=== PATIENT | female | born 1955 | race Caucasian/White ===

== ENCOUNTER → 2017-06-24 | Outpatient (CLI) | payer OTHER, BC ==
--- NOTE | 2017-07-01 19:08 | SLEEPHOME ---
DATE OF STUDY: 06/24/2017 ORDERED BY: Lucy Mahmood NP Diagnostic home sleep testing was performed due to concern for the obstructive sleep apnea syndrome. For testing, a NOX-T3 respiratory monitoring device was used. Continuous record was made of pulse, oxygen saturation, air flow, chest and abdominal strain. 9 hours and 59 minutes of data were reviewed. Of these, 6hours and 56 minutes were marked as time in bed. During the interval marked time in bed, there were 36 respiratory events identified of 10 seconds in duration of greater for a respiratory event index of 5.2. The events were primarily obstructive. Baseline pulse rate was 64 beats per minute. Pulse rate ranged 46 to 89. Baseline saturation 95%. Lowest oxygen saturation 87%. Testing was performed in both the supine and non-supine positions. IMPRESSION: Abnormal home sleep testing with repetitive respiratory events and oxygen desaturations to 87% with a respiratory event index of 5.2, is consistent with the obstructive sleep apnea syndrome. RECOMMENDATION: The patient should be referred for formal sleep evaluation and consideration of pressure therapy titration.
== END ==
LOC: M SLEEP HO 06-23 09:15
PROVIDERS: ATTEND Nurse Practitioner Adult Health
DX: G47.33 Obstructive sleep apnea (adult) (pediatric) (principal)

== ENCOUNTER → 2017-11-01 | Outpatient (CLI) | payer OTHER, BC | LOC: M SLEEP 20:00 | DX: G47.33 Obstructive sleep apnea (adult) (pediatric) (principal); G47.61 Periodic limb movement disorder | CPT/HCPCS: 95811 ==

== ENCOUNTER → 2018-12-22 | Outpatient (REF) | payer OTHER ==
[~2018-12-22] MED LIST: COLA100C5 PO; D3 S20002 PO; DULC5TAB PO; METO1TAB87 PO; MICR1TAB5 PO; OLME20TA2 PO; SUPETAB44 PO
== END ==
LOC: M LABDRWAD 16:12
PROVIDERS: ATTEND Nurse Practitioner Adult Health
DX: R31.9 Hematuria, unspecified (principal); M54.5 Low back pain

== ENCOUNTER 2018-12-24 13:17 | Inpatient (IN) | payer OTHER, BC ==
[~2018-12-24] VITALS: Ht 165.1 cm; Wt 88.6 kg
[2018-12-24] MEDS ORDERED: D3 S20002 PO (13:22)
[2018-12-24] MEDS ORDERED: SUPETAB44 PO (13:22)
[2018-12-24] MEDS ORDERED: OLME20TA2 PO (13:22)
[2018-12-24] MEDS ORDERED: MICR1TAB5 PO (13:22)
[2018-12-24] MEDS ORDERED: METO1TAB87 PO (13:22)
[2018-12-24] MEDS ORDERED: NS 1,000 ML IV ONE (13:45)
[2018-12-24 14:06] LABS: BASO % 0.4 % (0.0-1.0); EOS # 0.1 10^3/uL (0.0-0.50); EOS % 0.6 % (0.0-3.0); HEMATOCRIT 29.2 % (36.0-47.0); HEMOGLOBIN 9.8 g/dl (12.0-15.5); LYMPH # 1.3 10^3/uL (1.5-4.5); LYMPH % 12.9 % (24.0-44.0); MEAN CORPUSCULAR HEMOGLOBIN 29.4 pg (27.0-33.0); MEAN CORPUSCULAR HGB CONC 33.6 g/dl (32.0-36.5); MEAN CORPUSCULAR VOLUME 87.7 fl (80.0-96.0); MONO # 0.7 10^3/uL (0.0-0.8); MONO % 7.4 % (0.0-5.0); NEUTROPHILS # 7.3 10^3/uL (1.8-7.7); NEUTROPHILS % 75.2 % (36.0-66.0); PLATELET COUNT, AUTOMATED 351 10^3/uL (150-450); RED BLOOD COUNT 3.33 10^6/uL (4.00-5.40); WHITE BLOOD COUNT 9.7 10^3/uL (4.0-10.0)
[2018-12-24 14:16] LABS: INR 1.24; PROTHROMBIN TIME 15.8 SECONDS (12.1-14.4)
[2018-12-24 14:17] LABS: PARTIAL THROMBOPLASTIN TIME 30.1 SECONDS (25.4-37.6)
[2018-12-24 14:36] LABS: BLOOD UREA NITROGEN 19 MG/DL (7-18); CALCIUM LEVEL 9.7 MG/DL (8.8-10.2); CARBON DIOXIDE LEVEL 22 MEQ/L (21-32); CHLORIDE LEVEL 111 MEQ/L (98-107); CREATININE FOR GFR 0.97 MG/DL (0.55-1.30); GLOMERULAR FILTRATION RATE > 60.0 (>45); GLUCOSE, FASTING 94 MG/DL (70-100); POTASSIUM SERUM 4.2 MEQ/L (3.5-5.1); SODIUM LEVEL 141 MEQ/L (136-145)
[2018-12-24 14:37] LABS: ALBUMIN 2.8 GM/DL (3.2-5.2); ALT/SGPT 13 U/L (12-78); BILIRUBIN,DIRECT 0.2 MG/DL (0.0-0.2); BILIRUBIN,TOTAL 0.6 MG/DL (0.2-1.0); LIPASE 172 U/L (73-393); TOTAL PROTEIN 6.4 GM/DL (6.4-8.2)
--- NOTE | 2018-12-24 16:03 | ECGEPIP ---
Stationary ECG Study [facility] - ED Test Date: 2018-12-24 Pat Name: PADDY DONALD Department: Room: - Gender: F Playback Operator: nathan : [id number] Requested By: LEANNE LACKEY PA-C Order Number: [id number] Reading MD: Joaquin Ramos Measurements Intervals [place] Rate: 98 P: 24 WI: 159 QRS: 11 QRSD: 82 T: 19 QT: 350 QTc: 447 Interpretive Statements SINUS RHYTHM V3 artifactual Electronically Signed On 12-24-2018 16:03:19 EDT by Joaquin Ramos
[2018-12-24] MEDS ORDERED: ONDANSETRON 4MG/2ML VIAL (J2405) IV PRN (16:45)
[2018-12-24] MEDS ORDERED: PERCOCET 5MG/325MG TAB PO PRN ×2 (16:45)
[2018-12-24] MEDS ORDERED: ACETAMINOPHEN TAB 650MG DOSE (2X325MG) PO PRN (16:45)
[2018-12-24] MEDS ORDERED: MORPHINE 4 MG/ML 1ML VIAL/SYRINGE (J2270) IV PRN (16:45)
[2018-12-24] MEDS: CIPROFLOXACIN 400 MG in APPROPRIATE DILUENT 1 EA IV SCH (16:56)
[2018-12-24] MEDS: PANTOPRAZOLE 40MG TAB (PROTONIX) PO SCH (16:56)
[2018-12-24] MEDS ORDERED: COLA100C5 PO (16:56)
[2018-12-24] MEDS ORDERED: DULC5TAB PO (16:56)
[2018-12-24 20:30] VITALS: BP 128/69
[2018-12-24] MEDS: metroNIDAZOLE 500 MG in APPROPRIATE DILUENT 1 EA IV SCH (20:38)
[2018-12-24] MEDS: HEPARIN SOD (PORCINE) 5000 UNITS/ML VIAL SC SCH (22:16)
[2018-12-25] VITALS: BP 116/65
[2018-12-25] MEDS: metroNIDAZOLE 500 MG in APPROPRIATE DILUENT 1 EA IV SCH ×3 (04:00→20:07)
[2018-12-25] MEDS: CIPROFLOXACIN 400 MG in APPROPRIATE DILUENT 1 EA IV SCH ×2 (06:23→17:47)
[2018-12-25] MEDS: HEPARIN SOD (PORCINE) 5000 UNITS/ML VIAL SC SCH ×3 (06:24→21:37)
[2018-12-25 07:15] LABS: BASO % 0.2 % (0.0-1.0); EOS # 0.1 10^3/uL (0.0-0.50); HEMATOCRIT 30.2 % (36.0-47.0); HEMOGLOBIN 9.8 g/dl (12.0-15.5); LYMPH # 1.4 10^3/uL (1.5-4.5); LYMPH % 15.4 % (24.0-44.0); MEAN CORPUSCULAR HEMOGLOBIN 28.6 pg (27.0-33.0); MEAN CORPUSCULAR HGB CONC 32.5 g/dl (32.0-36.5); MONO # 0.7 10^3/uL (0.0-0.8); MONO % 8.4 % (0.0-5.0); NEUTROPHILS # 6.3 10^3/uL (1.8-7.7); NEUTROPHILS % 71.2 % (36.0-66.0); PLATELET COUNT, AUTOMATED 350 10^3/uL (150-450); RED BLOOD COUNT 3.43 10^6/uL (4.00-5.40); WHITE BLOOD COUNT 8.8 10^3/uL (4.0-10.0)
[2018-12-25 07:38] LABS: BLOOD UREA NITROGEN 14 MG/DL (7-18); CALCIUM LEVEL 9.6 MG/DL (8.8-10.2); CARBON DIOXIDE LEVEL 23 MEQ/L (21-32); CHLORIDE LEVEL 114 MEQ/L (98-107); GLOMERULAR FILTRATION RATE > 60.0 (>45); GLUCOSE, FASTING 108 MG/DL (70-100); SODIUM LEVEL 144 MEQ/L (136-145)
--- NOTE | 2018-12-25 07:41 | HPEPDOC ---
General Surgery H&P Date of Admission Dec 24, 2018 Attending Physician: SABINA GRIJALVA MD History and Physical CHIEF COMPLAINT: left sided abdominal pain HISTORY OF PRESENT ILLNESS: Patient was instructed to go to the ER for evaluation when she had an outpatient CT scan of the abdomen and pelvis performed at [facility] early in the morning for a one week history of left sided abdominal pain and discomfort. Patient presented to her primary care provider last Friday with complaints of a one-week history of discomfort and pain located on the left side of the abdomen. She denies any accompanying (worsening) diarrhea fevers or chills. She reports discomfort with prolonged walking, sitting. She denies any sick contacts. She had a previous history of diverticulitis and was concerned this was another episode. She reports that her discomfort is more a nagging type of pain and this radiates to her lower back area. She was suspected to be passing out a kidney stone and a CT scan of the abdomen and pelvis was arranged for an outpatient. This was done early this morning at [facility]. After the CT scan was performed she was called back to go to the emergency room for further evaluation. At that time that she was in the ER she reports that her discomfort has actually gotten better for the past day. She currently rates this as a bout 3-12/23. She has no previous antibiotic course. She had previous colonoscopies performed. In our system she had one done in 2006. She reports she has had 2 other colonoscopies. The most recent one was done late last year by a Dr. Kemp in [place]. He was unable to complete it the cause of multiple diverticulosis. She reports she had a follow- up barium enema performed and no abnormalities were found in that study (was requested by a surgeon). On her previous colonoscopies no polyps have been found or removed. She has had a history of ovarian cancer about 8 years ago for which she had total abdominal hysterectomy performed. She also has had cholecystectomy performed and since then has been having loose bowel movements with periods of mild exacerbation so she was not sure if the diarrhea that she was having as part of what is going on right now or just because of her not having her gallbladder anymore. She also reports about a 40 pound history of weight loss since the start of the year which she was voluntarily doing my trying to improve her diet. She reports fair appetite and easily feeling full but denies any nausea, vomiting or abdominal distention. She reports minimal discomfort on the right side of her abdomen and only when this gets pushed during the examination. ALLERGIES: Please see below. HOME MEDICATIONS: Please see below. PAST MEDICAL HISTORY: 1. History of ovarian cancer. 2. Hypertension 3. Hypercholesterolemia. 4. Obstructive sleep apnea on CPAP 5. Varicose veins 6. Prior history of diverticulitis PAST SURGICAL HISTORY: 1. Total abdominal hysterectomy and salpingo-oophorectomy. 2. Laparoscopic cholecystectomy 3. Tubal ligation 4. Prior history of colonoscopies PERSONAL/SOCIAL HISTORY: [Denies smoking, alcohol use, or recreational drug use]. REVIEW OF SYSTEMS: GENERAL: She reports about a 40 pound weight loss since the start of the year, she denies any fevers or chills. HEENT: [Denies blurred vision and double vision. Denies ear symptoms. Denies hoarseness]. NECK: [Denies any neck pain]. CARDIOVASCULAR: [Denies chest pain and palpitations]. MUSCULOSKELETAL: [Denies arthralgias, back pain and thrombophlebitis]. SKIN: [Denies rash]. NEUROLOGIC: [Denies headache, stroke and transient ischemic attack]. PSYCHIATRIC: [Denies anxiety and depression]. ENDOCRINE: [Denies thyroid disease]. HEMATOLOGY/ONCOLOGY: [Denies any bleeding or clotting disorder]. HEART: [Denies any chest pains, palpitations, paroxysmal dyspnea, orthopnea]. PULMONARY: [Denies chronic cough, dyspnea and wheezing]. GASTROINTESTINAL: Patient complains of episodes of multiple loose stools daily since cholecystectomy. 1 history of left-sided abdominal pain GENITOURINARY: [Denies dysuria, frequency, hematuria and nocturia]. ENDOCRINE: [Denies polydipsia, polyphagia, polyuria, heat or cold intolerance]. INFECTIOUS: [Denies any recent upper respiratory tract infection, UTI, need for use of antibiotics]. NUTRITION: Reports poor to fair appetite, feeling of fullness easily. PHYSICAL EXAMINATION: VITAL SIGNS: Please see below. GENERAL APPEARANCE: [Patient seen at bedside, appears comfortable]. [Awake, alert, oriented]. HEENT: [Normocephalic, atraumatic. Mild pale palpebral conjunctivae. Anicteric sclerae. Lips moist]. CHEST: [No chest wall abnormalities. Normal respiratory motion/effort]. NECK: [Supple. No thyromegaly. No lymphadenopathies]. LUNGS: [Lung sounds are clear to auscultation bilaterally. No wheezing apprecia elyse]. HEART: [No chest wall abnormalities. Heart rate and rhythm are regular with no murmurs]. ABDOMEN: Abdomen slightly rounded, mildly obese, loose skin and pannus. Should previous laparoscopic port sites that appears healed. No [place] herniations at the umbilicus or groin. She has mild tenderness on palpation over the left lower abdomen near the groin site but no definite associated hernia or skin changes towards it. No rebound or guarding. She has mild discomfort with palpation over the right lower quadrant area without any associated rebound or guarding. No definite masses palpable. Slight tympany to percussion with no definite increased distention. SKIN: [Warm, moist]. EXTREMITIES: Her right leg seems bigger than the left with mild generalized erythema. Varicosities more prominent on the right leg than the left. NEUROLOGICAL: Awake, alert, oriented, no hemiplegia no focal sensory or motor deficits.. ANCILLARIES: . LABORATORY DATA: Please see below. MICROBIOLOGY: Please see below. IMAGING: She came in with a CT of the abdomen and pelvis done at [facility]. I reviewed the images with Dr. Wren. She had a prior CT of the abdomen and pelvis done in 2015 on an emergency room visit for diverticulitis. Images at [facility] was compared with this. On today's CT, at the right lower quadrant area she is an extensive area of acute inflammatory findings with area surrounding the appendix showing contained extraluminal air, inflammation and possibility of an abscess. Appendix stump appears to be markedly enlarged, fluid-containing. Back to the images in 2015 the appendix on this can seems to be enlarged and fluid-filled. On today's imaging also there are scattered enlarged lymph nodes. There is no free air, no free ascites. There is no inflammatory changes or bowel changes over the left lower quadrant area.. 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 Clinically she ismainly complaining of left sided abdominal discomfort that led to the CT scan of the abdomen and pelvis as ordered by her PMD. I do not have any findings on CT to correlate on why she is having discomfort at the area.Instead there are acute inflammatory findings consitent with contained perforation of most likely the appendix with a contained air and fluid collection just below the liver most likely an abscess. This is complicated by findings of an enlarged appendix that on looking back at previous imaging has been there since last CT on 2014 of a fluid filled tubular structure which is the distended appendix raising possibilty of a mucocoele vs a mucin containing tumor of the appendix. Clinically she is not septic and is only having minimal tenderness over the RLQ area. She is not showing any signs of obstruction. She is reporting significant weight loss as well as diarrhea which she initially attributes to having cholecystectomy performed. At this point I will admit her to the hospital under my care. Start her on antibiotics for the acute inflammation. I spoke to radiiology regarding draining the abscess but they do not recommend this given possibility of cancer which may cause rupture of the collection and seeding the cancer. I will boserve her course, may need to repeat CT and tentatively plan for abdominal exploration next week. Vital Signs Vital Signs Date Time Temp Pulse Resp B/P (MAP) Pulse Ox O2 Delivery O2 Flow Rate FiO2 12/25/18 00:00 97.8 91 20 116/65 (82) 97 12/24/18 19:34 Room Air I&Os I&O- Last 24 Hours up to 6 AM 12/25/18 06:00 Intake Total 1300 ml Balance 1300 ml Laboratory Data Labs 24H Laboratory Tests 2 12/24/18 13:57: Immature Granulocyte % (Auto) 3.5H, White Blood Count 9.7, Red Blood Count 3.33L , Hemoglobin 9.8L, Hematocrit 29.2L, Mean Corpuscular Volume 87.7, Mean Corpuscular Hemoglobin 29.4, Mean Corpuscular Hemoglobin Concent 33.6, Red Cell Distribution Width 11.9, Platelet Count 351, Neutrophils (%) (Auto) 75.2H, Lymphocytes (%) (Auto) 12.9L, Monocytes (%) (Auto) 7.4H, Eosinophils (%) (Auto) 0.6, Basophils (%) (Auto) 0.4, Neutrophils # (Auto) 7.3, Lymphocytes # (Auto) 1.3L, Monocytes # (Auto) 0.7, Eosinophils # (Auto) 0.1, Basophils # (Auto) 0.0, Nucleated Red Blood Cells % (auto) 0.0, Prothrombin Time 15.8H, Prothromb Time International Ratio 1.24, Activated Partial Thromboplast Time 30.1, Urine Color YELLOW, Urine Appearance CLEAR, Urine pH 5.0, Urine Specific [place] 1.040, Urine Protein NEGATIVE, Urine Glucose (UA) NEGATIVE, Urine Ketones NEGATIVE, Urine Blood NEGATIVE, Urine Nitrite NEGATIVE, Urine Bilirubin NEGATIVE, Urine Urobilinogen 0.2, Urine Leukocyte Esterase NEGATIVE, Urine WBC (Auto) 2, Urine RBC (Auto) 0, Urine Hyaline Casts (Auto) 0, Urine Bacteria (Auto) 1+H, Urine Squamous Epithelial Cells 5, Urine Sperm (Auto) , Anion Gap 8, Glomerular Filtration Rate > 60.0, Lactic Acid Level 1.1, Calcium Level 9.7, Aspartate Amino Transf (AST/SGOT) 11, Alanine Aminotransferase (ALT/SGPT) 13, Alkaline Phosphatase 64, Total Bilirubin 0.6, Direct Bilirubin 0.2, Total Protein 6.4, Albumin 2.8L, Albumin/Globulin Ratio 0.78L, Lipase 172 12/25/18 06:38: Immature Granulocyte % (Auto) 3.8H, White Blood Count 8.8, Red Blood Count 3.43L, Hemoglobin 9.8L, Hematocrit 30.2L, Mean Corpuscular Volume 88.0, Mean Corpuscular Hemoglobin 28.6, Mean Corpuscular Hemoglobin Concent 32.5, Red Cell Distribution Width 12.0, Platelet Count 350, Neutrophils (%) (Auto) 71.2H, Lymphocytes (%) (Auto) 15.4L, Monocytes (%) (Auto) 8.4H, Eosinophils (%) (Auto) 1.0, Basophils (%) (Auto) 0.2, Neutrophils # (Auto) 6.3, Lymphocytes # (Auto) 1.4L, Monocytes # (Auto) 0.7, Eosinophils # (Auto) 0.1, Basophils # (Auto) 0.0, Nucleated Red Blood Cells % (auto) 0.0 CBC/BMP Laboratory Tests 12/24/18 13:57 Red Blood Count 3.33 L, Mean Corpuscular Volume 87.7, Mean Corpuscular Hemoglobin 29.4, Mean Corpuscular Hemoglobin Concent 33.6, Red Cell Distribution Width 11.9, Neutrophils (%) (Auto) 75.2 H, Lymphocytes (%) (Auto) 12.9 L, Monocytes (%) (Auto) 7.4 H, Eosinophils (%) (Auto) 0.6, Basophils (%) (Auto) 0.4, Neutrophils # (Auto) 7.3, Lymphocytes # (Auto) 1.3 L, Monocytes # (Auto) 0.7, Eosinophils # (Auto) 0.1, Basophils # (Auto) 0.0 12/25/18 06:38 Red Blood Count 3.43 L, Mean Corpuscular Volume 88.0, Mean Corpuscular He moglobin 28.6, Mean Corpuscular Hemoglobin Concent 32.5, Red Cell Distribution Width 12.0, Neutrophils (%) (Auto) 71.2 H, Lymphocytes (%) (Auto) 15.4 L, Monocytes (%) (Auto) 8.4 H, Eosinophils (%) (Auto) 1.0, Basophils (%) (Auto) 0.2, Neutrophils # (Auto) 6.3, Lymphocytes # (Auto) 1.4 L, Monocytes # (Auto) 0.7, Eosinophils # (Auto) 0.1, Basophils # (Auto) 0.0 Microbiology Microbiology 12/24/18 Blood Culture, Received Pending 12/24/18 Blood Culture, Received Pending Home Medications Scheduled Cholecalciferol (Vitamin D3) (Vitamin D3) 2,000 Unit Capsule, 2,000 UNITS PO QPM, (Reported) Colestipol HCl (Micronized Colestipol HCl) 1 Gm Tablet, 1 GM PO QPM, (Reported) Folic Acid/Vit B Complex and C (Super B Complex Tablet) 400 Mcg Tablet, 1 TAB PO QPM, (Reported) Metoprolol Tartrate (Metoprolol Tartrate) 25 Mg Tablet, 25 MG PO BID, (Reported) Olmesartan Medoxomil (Olmesartan Medoxomil) 20 Mg Tablet, 20 MG PO QPM, (Reported) Scheduled PRN Bisacodyl (Dulcolax) 5 Mg Tablet.dr, 5 MG PO DAILY PRN for CONSTIPATION, (Reported) Docusate Sodium (Colace) 100 Mg Capsule, 100 MG PO DAILY PRN for CONSTIPATION, (Reported) Allergies Coded Allergies: No Known Drug Allergies (Verified Allergy, Unknown, 12/24/18) SABINA GRIJALVA MD Dec 25, 2018 07:41
[2018-12-25 08:00] VITALS: BP 118/61
[2018-12-25] MEDS: PANTOPRAZOLE 40MG TAB (PROTONIX) PO SCH (08:53)
[2018-12-25 16:00] VITALS: BP 112/72
--- NOTE | 2018-12-25 16:10 | REP ---
RIGHT LOWER EXTREMITY DUPLEX DOPPLER VENOUS ULTRASOUND: Real-time compression and duplex Doppler interrogation of the right lower extremity deep venous system is performed. The right common femoral, superficial femoral and popliteal veins are fully compressible with transducer pressure and demonstrate normal flow with no deep vein thrombosis. However, there is diffuse thrombosis of the greater saphenous vein with multiple thrombosed venous varicosities adjacent to the mid to distal aspects of the greater saphenous vein. Electronically Signed by Neo Lao MD 12/25/2018 05:10 P
[2018-12-25 20:00] VITALS: BP 141/81
[2018-12-26] MEDS: metroNIDAZOLE 500 MG in APPROPRIATE DILUENT 1 EA IV SCH ×3 (03:50→20:40)
[2018-12-26 04:08] VITALS: BP 131/78
--- NOTE | 2018-12-26 05:27 | IPNPDOC ---
Subjective General Date/Time Seen The patient was seen on 12/25/18 Subject Chief Complaint/History The patient is a 63-year-old female admitted with a reason for visit of Appendicitis With Abscess Mucocele Appendix.... Patient reports no further abdominal pain, left lower quadrant and right lower quadrant abdominal pain. She is reporting some mild tenderness and swelling on her right lower extremity which is chronic. She's been afebrile, stable overnight. Current Medications Current Medications Current Medications Acetaminophen (Tylenol Tab) 650 mg Q4HP PRN PO MILD PAIN or TEMP > 101; Start 12/24/18 at 16:45 Ciprofloxacin 400 mg/IV Miscellaneous Supplies 200 ml @ 200 mls/hr Q12H IV Last administered on 12/25/18at 17:47; Start 12/24/18 at 18:00 Heparin Sodium (Porcine) (Heparin) 5,000 units Q8H SC Last administered on 12/25/18at 21:37; Start 12/24/18 at 22:00 Home Med (Med Rec Complete!) ASDIRECTED XX ; Start 12/24/18 at 17:00; Stop 12/24/18 at 17:00; Status DC Magnesium Hydroxide (Milk Of Magnesia) 30 ml BID PO ; Start 12/26/18 at 09:00 Metronidazole 500 mg/IV Miscellaneous Supplies 100 ml @ 100 mls/hr Q8H IV Last administered on 12/26/18at 03:50; Start 12/24/18 at 20:00 Morphine Sulfate (Morphine Sulfate Inj) 4 mg Q2HP PRN IV SEVERE PAIN (PS 8-10); Start 12/24/18 at 16:45 Ondansetron HCl (ZOFRAN INJection) 4 mg Q6HP PRN IV NAUSEA OR VOMITING; Start 12/24/18 at 16:45 Oxycodone/ Acetaminophen (Percocet 5mg/ 325mg Tablet) 1 tab Q4HP PRN PO MODERATE PAIN (PS 5-7); Start 12/24/18 at 16:45 Oxycodone/ Acetaminophen (Percocet 5mg/ 325mg Tablet) 2 tab Q6HP PRN PO SEVERE PAIN (PS 8-10); Start 12/24/18 at 16:45 Pantoprazole Sodium (Protonix) 40 mg DAILY PO Last administered on 12/25/18at 08:53; Start 12/24/18 at 09:00 Allergies Coded Allergies: No Known Drug Allergies (Verified Allergy, Unknown, 12/24/18) Objective Physical Examination Examination GENERAL APPEARANCE: Comfortable. SKIN: [Warm and moist]. HEENT: Mild Pale palpebral conjunctiva. NECK: [Supple, no thyromegaly. No obvious jugular venous distention]. LUNGS: [Clear to auscultation bilaterally. No wheezing appreciated]. HEART: [No chest wall abnormalities. Regular rate and rhythm with no murmurs appreciated]. ABDOMEN: Abdomen is nondistended, soft, nontender on palpation. EXTREMITIES: Right lower extremity mildly larger than the left, prominent thrombosed varicosities slight prominence on the medial knee area on the right side without any fluctuance.. Vital Signs Vital Signs Date Time Temp Pulse Resp B/P (MAP) Pulse Ox O2 Delivery O2 Flow Rate FiO2 12/26/18 04:08 98.7 82 18 131/78 (95) 98 12/24/18 19:34 Room Air I&Os I&O- Last 24 Hours up to 6 AM 12/26/18 06:00 Intake Total 1540 ml Output Total 400 ml Balance 1140 ml Laboratory Data Labs 24H Laboratory Tests 2 12/25/18 06:38: Immature Granulocyte % (Auto) 3.8H, White Blood Count 8.8, Red Blood Count 3.43L, Hemoglobin 9.8L, Hematocrit 30.2L, Mean Corpuscular Volume 88.0, Mean Corpuscular Hemoglobin 28.6, Mean Corpuscular Hemoglobin Concent 32.5, Red Cell Distribution Width 12.0, Platelet Count 350, Neutrophils (%) (Auto) 71.2H, Lymphocytes (%) (Auto) 15.4L, Monocytes (%) (Auto) 8.4H, Eosinophils (%) (Auto) 1.0, Basophils (%) (Auto) 0.2, Neutrophils # (Auto) 6.3, Lymphocytes # (Auto) 1.4L, Monocytes # (Auto) 0.7, Eosinophils # (Auto) 0.1, Basophils # (Auto) 0.0, Nucleated Red Blood Cells % (auto) 0.0, Anion Gap 7L, Glomerular Filtration Rate > 60.0, Blood Urea Nitrogen 14, Creatinine 0.90, Sodium Level 144, Potassium Level 4.0, Chloride Level 114H, Carbon Dioxide Level 23, Calcium Level 9.6 CBC/BMP Laboratory Tests 12/25/18 06:38 Red Blood Count 3.43 L, Mean Corpuscular Volume 88.0, Mean Corpuscular Hemo globin 28.6, Mean Corpuscular Hemoglobin Concent 32.5, Red Cell Distribution Width 12.0, Neutrophils (%) (Auto) 71.2 H, Lymphocytes (%) (Auto) 15.4 L, Monocytes (%) (Auto) 8.4 H, Eosinophils (%) (Auto) 1.0, Basophils (%) (Auto) 0.2, Neutrophils # (Auto) 6.3, Lymphocytes # (Auto) 1.4 L, Monocytes # (Auto) 0.7, Eosinophils # (Auto) 0.1, Basophils # (Auto) 0.0, Calcium Level 9.6 Microbiology Microbiology 12/24/18 Blood Culture - Preliminary, Resulted No growth after 24 hours . All specim... 12/24/18 Blood Culture - Preliminary, Resulted No growth after 24 hours . All specim... 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 I will switch her to full liquids today and clear liquids and Friday Plan / VTE VTE Prophylaxis Ordered?: Yes SABINA GRIJALVA MD Dec 26, 2018 05:27
[2018-12-26] MEDS: CIPROFLOXACIN 400 MG in APPROPRIATE DILUENT 1 EA IV SCH ×2 (05:29→17:56)
[2018-12-26] MEDS: HEPARIN SOD (PORCINE) 5000 UNITS/ML VIAL SC SCH ×3 (05:29→22:33)
[2018-12-26 07:42] LABS: BASO % 0.3 % (0.0-1.0); EOS # 0.1 10^3/uL (0.0-0.50); EOS % 0.8 % (0.0-3.0); HEMATOCRIT 27.1 % (36.0-47.0); HEMOGLOBIN 8.7 g/dl (12.0-15.5); LYMPH # 0.9 10^3/uL (1.5-4.5); LYMPH % 12.1 % (24.0-44.0); MEAN CORPUSCULAR HEMOGLOBIN 28.4 pg (27.0-33.0); MEAN CORPUSCULAR HGB CONC 32.1 g/dl (32.0-36.5); MEAN CORPUSCULAR VOLUME 88.6 fl (80.0-96.0); MONO # 0.7 10^3/uL (0.0-0.8); MONO % 8.7 % (0.0-5.0); NEUTROPHILS # 5.8 10^3/uL (1.8-7.7); NEUTROPHILS % 76.1 % (36.0-66.0); PLATELET COUNT, AUTOMATED 298 10^3/uL (150-450); RED BLOOD COUNT 3.06 10^6/uL (4.00-5.40); WHITE BLOOD COUNT 7.6 10^3/uL (4.0-10.0)
[2018-12-26 07:51] LABS: BLOOD UREA NITROGEN 11 MG/DL (7-18); CALCIUM LEVEL 8.8 MG/DL (8.8-10.2); CARBON DIOXIDE LEVEL 23 MEQ/L (21-32); CHLORIDE LEVEL 112 MEQ/L (98-107); CREATININE FOR GFR 0.87 MG/DL (0.55-1.30); GLOMERULAR FILTRATION RATE > 60.0 (>45); GLUCOSE, FASTING 137 MG/DL (70-100); POTASSIUM SERUM 3.9 MEQ/L (3.5-5.1); SODIUM LEVEL 143 MEQ/L (136-145)
[2018-12-26 08:00] VITALS: BP 140/75
[2018-12-26] MEDS: MOM 30ML SUSPENSION UDC PO SCH ×2 (08:17→20:40)
[2018-12-26] MEDS: PANTOPRAZOLE 40MG TAB (PROTONIX) PO SCH (08:17)
[2018-12-26 16:00] VITALS: BP 134/75
[2018-12-26 20:00] VITALS: BP 127/77
[2018-12-27] VITALS: BP 117/72
[2018-12-27] MEDS: metroNIDAZOLE 500 MG in APPROPRIATE DILUENT 1 EA IV SCH ×3 (03:53→21:31)
[2018-12-27] MEDS: CIPROFLOXACIN 400 MG in APPROPRIATE DILUENT 1 EA IV SCH ×2 (05:11→17:43)
[2018-12-27] MEDS: HEPARIN SOD (PORCINE) 5000 UNITS/ML VIAL SC SCH ×3 (06:32→21:31)
[2018-12-27 07:38] LABS: BASO % 0.5 % (0.0-1.0); EOS # 0.1 10^3/uL (0.0-0.50); EOS % 1.1 % (0.0-3.0); HEMATOCRIT 26.8 % (36.0-47.0); HEMOGLOBIN 8.8 g/dl (12.0-15.5); LYMPH # 1.1 10^3/uL (1.5-4.5); MEAN CORPUSCULAR HEMOGLOBIN 28.8 pg (27.0-33.0); MEAN CORPUSCULAR HGB CONC 32.8 g/dl (32.0-36.5); MEAN CORPUSCULAR VOLUME 87.6 fl (80.0-96.0); MONO # 0.6 10^3/uL (0.0-0.8); MONO % 9.4 % (0.0-5.0); NEUTROPHILS # 4.3 10^3/uL (1.8-7.7); NEUTROPHILS % 68.3 % (36.0-66.0); PLATELET COUNT, AUTOMATED 284 10^3/uL (150-450); RED BLOOD COUNT 3.06 10^6/uL (4.00-5.40); WHITE BLOOD COUNT 6.3 10^3/uL (4.0-10.0)
[2018-12-27 07:52] LABS: BLOOD UREA NITROGEN 9 MG/DL (7-18); CARBON DIOXIDE LEVEL 23 MEQ/L (21-32); CHLORIDE LEVEL 113 MEQ/L (98-107); CREATININE FOR GFR 0.88 MG/DL (0.55-1.30); GLOMERULAR FILTRATION RATE > 60.0 (>45); GLUCOSE, FASTING 131 MG/DL (70-100); POTASSIUM SERUM 3.8 MEQ/L (3.5-5.1); SODIUM LEVEL 143 MEQ/L (136-145)
[2018-12-27] MEDS: MOM 30ML SUSPENSION UDC PO SCH ×2 (08:23→21:30)
[2018-12-27] MEDS: PANTOPRAZOLE 40MG TAB (PROTONIX) PO SCH (08:23)
[2018-12-27 09:00] VITALS: BP 140/85
[2018-12-27 16:00] VITALS: BP 149/89
[2018-12-27 20:00] VITALS: BP 137/90
[2018-12-28] VITALS (8 sets, daily range): BP systolic 125–141; BP diastolic 70–81
[2018-12-28] MEDS: metroNIDAZOLE 500 MG in APPROPRIATE DILUENT 1 EA IV SCH ×3 (03:09→20:11)
[2018-12-28] MEDS: CIPROFLOXACIN 400 MG in APPROPRIATE DILUENT 1 EA IV SCH ×2 (05:08→18:08)
--- NOTE | 2018-12-28 07:12 | IPN ---
DATE: 12/26/2018 The patient overall has been doing quite well from a pain standpoint, she has been afebrile and not having any nausea, no vomiting. And her white count remains normal. She overall states her abdominal pain is much better and essentially does not complain of any abdominal pain. She has had a couple bowel movements yesterday and one this morning already. On her physical exam abdomen is soft, nontender, nondistended. No guarding no rebound. No peritoneal signs are appreciated. IMPRESSION AND PLAN: The patient has evidence of a intra-abdominal abscess and the location of the abnormality is where a possibly dilated appendix is and given its presentation I do feel that this is a reasonable next step to proceed with a diagnostic laparoscopy, possible laparotomy with resection of this. The patient currently is on full liquid diet, tolerating this well and has received some milk of magnesia and has had some soft stools associated with this. At this point I would recommend that she continue increase activity and will see how she is doing over the ensuing few days. The second issue, she does have a thrombophlebitis of her greater saphenous vein and this could be easily palpated. He is not really all that tender at this point she states that it is a lot better than it was yesterday but has had a superficial thrombophlebitis in the past when I palpate the greater saphenous vein and I start to track up the clot in the varicosity along the greater. His pain. This stops mid midthigh does not seem to go any further physically. And overall she does not have any significant lymphedema of the lower extremity or pain in the lower extremity. She is currently on some heparin and K pad for relief.
[2018-12-28 07:22] LABS: BASO % 0.4 % (0.0-1.0); EOS # 0.1 10^3/uL (0.0-0.50); EOS % 0.8 % (0.0-3.0); HEMATOCRIT 27.6 % (36.0-47.0); HEMOGLOBIN 9.3 g/dl (12.0-15.5); LYMPH # 1.2 10^3/uL (1.5-4.5); LYMPH % 14.5 % (24.0-44.0); MEAN CORPUSCULAR HEMOGLOBIN 29.1 pg (27.0-33.0); MEAN CORPUSCULAR HGB CONC 33.7 g/dl (32.0-36.5); MEAN CORPUSCULAR VOLUME 86.3 fl (80.0-96.0); MONO # 0.7 10^3/uL (0.0-0.8); MONO % 8.6 % (0.0-5.0); NEUTROPHILS # 5.8 10^3/uL (1.8-7.7); NEUTROPHILS % 72.9 % (36.0-66.0); PLATELET COUNT, AUTOMATED 299 10^3/uL (150-450); WHITE BLOOD COUNT 7.9 10^3/uL (4.0-10.0)
--- NOTE | 2018-12-28 07:23 | IPN ---
DATE: 12/27/2018 The patient is doing well today, feels even better. Her leg does not bother her at all and overall tolerating her diet. Continues to have some soft stool. She is not feeling bloated or distended. Her abdomen is soft, nontender, nondistended. She has been afebrile. Vital signs are stable and urine outputs been good although it has not been monitored per se. IMPRESSION/PLAN: From a GI standpoint she does have this abnormality on her x-ray/CT scan of an abnormality in the right side of the abdomen and it looks like there may be a localized perforation of possibly a mucocele of the appendix which may be what is going on in this area, it is hard to tell. Fortunately, she does not have a significant amount of inflammatory changes around this at this time and no significant ileus and no free intra-abdominal perforation. She has done well over the last several days and tomorrow is planning on undergoing a diagnostic laparoscopy with possible laparotomy. Her hematocrit has drifted down a bit since her admission but has been stable since yesterday. She is asymptomatic from a shortness of breath standpoint no evidence of shortness of breath. No evidence of tachycardia, and her blood pressure. She is continuing on some heparin at this point but this will be before midnight.
[2018-12-28 07:43] LABS: BLOOD UREA NITROGEN 6 MG/DL (7-18); CALCIUM LEVEL 9.3 MG/DL (8.8-10.2); CARBON DIOXIDE LEVEL 25 MEQ/L (21-32); CHLORIDE LEVEL 111 MEQ/L (98-107); CREATININE FOR GFR 0.95 MG/DL (0.55-1.30); GLOMERULAR FILTRATION RATE > 60.0 (>45); GLUCOSE, FASTING 135 MG/DL (70-100); POTASSIUM SERUM 3.8 MEQ/L (3.5-5.1); SODIUM LEVEL 142 MEQ/L (136-145)
[2018-12-28] MEDS ORDERED: PROPOFOL 200 MG/20 ML VIAL As Ordered ONE (08:01)
[2018-12-28] MEDS ORDERED: ONDANSETRON 4MG/2ML VIAL (J2405) As Ordered ONE ×2 (08:01→14:40)
[2018-12-28] MEDS ORDERED: LIDOCAINE 2% INJ 100 MG/5 ML SDV (FOR ANES.) As Ordered ONE (08:01)
[2018-12-28] MEDS ORDERED: METOCLOPRAMIDE INJ 10MG/2ML VIAL (J2765) As Ordered ONE (08:01)
[2018-12-28] MEDS ORDERED: ROCURONIUM BROMIDE 50 MG/5 ML VIAL As Ordered ONE ×2 (08:01→11:41)
[2018-12-28] MEDS ORDERED: MIDAZOLAM INJ 2 MG/2 ML VIAL (J2250) As Ordered ONE (08:02)
[2018-12-28] MEDS ORDERED: fentaNYL 250 MCG/5 ML INJECTION (J3010) As Ordered ONE (08:02)
[2018-12-28] MEDS: MOM 30ML SUSPENSION UDC PO SCH ×2 (09:00→20:12)
[2018-12-28] MEDS ORDERED: LIDOCAINE 1% SDV INJ 30 ML VIAL As Ordered ONE (09:45)
[2018-12-28] MEDS ORDERED: BUPIVACAINE HCL 0.25% 30 ML VIAL As Ordered ONE (09:45)
--- NOTE | 2018-12-28 09:46 | IPNPDOC ---
Subjective General Date/Time Seen The patient was seen on 12/28/18 at 09:43. Subject Chief Complaint/History The patient is a 63-year-old female admitted with a reason for visit of Appendicitis With Abscess Mucocele Appendix.... Patient was seen at the preoperative holding area. No acute events over the weekend. Her left lower quadrant discomfort is mostly gone away and she is only minimal right lower quadrant discomfort. She's been afebrile throughout her stay. Current Medications Current Medications Current Medications Acetaminophen (Tylenol Tab) 650 mg Q4HP PRN PO MILD PAIN or TEMP > 101; Start 12/24/18 at 16:45 Ciprofloxacin 400 mg/IV Miscellaneous Supplies 200 ml @ 200 mls/hr Q12H IV Last administered on 12/28/18at 05:08; Start 12/24/18 at 18:00 Heparin Sodium (Porcine) (Heparin) 5,000 units Q8H SC Last administered on 12/27/18at 21:31; Start 12/24/18 at 22:00; Stop 12/27/18 at 23:00; Status DC Home Med (Med Rec Complete!) ASDIRECTED XX ; Start 12/24/18 at 17:00; Stop 12/24/18 at 17:00; Status DC Magnesium Hydroxide (Milk Of Magnesia) 30 ml BID PO Last administered on 12/27/18at 21:30; Start 12/26/18 at 09:00 Metronidazole 500 mg/IV Miscellaneous Supplies 100 ml @ 100 mls/hr Q8H IV Last administered on 12/28/18at 03:09; Start 12/24/18 at 20:00 Morphine Sulfate (Morphine Sulfate Inj) 4 mg Q2HP PRN IV SEVERE PAIN (PS 8-10); Start 12/24/18 at 16:45 Ondansetron HCl (ZOFRAN INJection) 4 mg Q6HP PRN IV NAUSEA OR VOMITING; Start 12/24/18 at 16:45 Oxycodone/ Acetaminophen (Percocet 5mg/ 325mg Tablet) 1 tab Q4HP PRN PO MODERATE PAIN (PS 5-7); Start 12/24/18 at 16:45 Oxycodone/ Acetaminophen (Percocet 5mg/ 325mg Tablet) 2 tab Q6HP PRN PO SEVERE PAIN (PS 8-10); Start 12/24/18 at 16:45 Pantoprazole Sodium (Protonix) 40 mg DAILY PO Last administered on 12/27/18at 08:23; Start 12/24/18 at 09:00 Allergies Coded Allergies: No Known Drug Allergies (Verified Allergy, Unknown, 12/24/18) Objective Physical Examination Examination GENERAL APPEARANCE: Comfortable. SKIN: Warm and dry. HEENT: Mild pale palpebral conjunctiva. NECK: [Supple, no thyromegaly. No obvious jugular venous distention]. LUNGS: [Clear to auscultation bilaterally. No wheezing appreciated]. HEART: [No chest wall abnormalities. Regular rate and rhythm with no murmurs appreciated]. ABDOMEN: Abdomen is mildly obese, soft, nondistended. Mild fullness, minimal tenderness on deep palpation over the right lower quadrant area without rebound or guarding. EXTREMITIES: Right lower extremity slightly larger than the left, minimal lower extremity edema. Vital Signs Vital Signs Date Time Temp Pulse Resp B/P (MAP) Pulse Ox O2 Delivery O2 Flow Rate FiO2 12/28/18 04:30 97.2 74 18 99 12/27/18 20:00 137/90 (106) 12/24/18 19:34 Room Air I&Os I&O- Last 24 Hours up to 6 AM 12/28/18 06:00 Intake Total 1520 ml Output Total 150 ml Balance 1370 ml Laboratory Data Labs 24H Laboratory Tests 2 12/28/18 07:06: Immature Granulocyte % (Auto) 2.8, White Blood Count 7.9, Red Blood Count 3.20L, Hemoglobin 9.3L, Hematocrit 27.6L, Mean Corpuscular Volume 86.3, Mean Corpuscular Hemoglobin 29.1, Mean Corpuscular Hemoglobin Concent 33.7, Red Cell Distribution Width 11.9, Platelet Count 299, Neutrophils (%) (Auto) 72.9H, Lymphocytes (%) (Auto) 14.5L, Monocytes (%) (Auto) 8.6H, Eosinophils (%) (Auto) 0.8, Basophils (%) (Auto) 0.4, Neutrophils # (Auto) 5.8, Lymphocytes # (Auto) 1.2L, Monocytes # (Auto) 0.7, Eosinophils # (Auto) 0.1, Basophils # (Auto) 0.0, Nucleated Red Blood Cells % (auto) 0.0, Anion Gap 6L, Glomerular Filtration Rate > 60.0, Blood Urea Nitrogen 6L, Creatinine 0.95, Sodium Level 142, Potassium Level 3.8, Chloride Level 111H, Carbon Dioxide Level 25, Calcium Level 9.3 CBC/BMP Laboratory Tests 12/28/18 07:06 Red Blood Count 3.20 L, Mean Corpuscular Volume 86.3, Mean Corpuscular Hemoglobin 29.1, Mean Corpuscular Hemoglobin Concent 33.7, Red Cell Distribution Width 11.9, Neutrophils (%) (Auto) 72.9 H, Lymphocytes (%) (Auto) 14.5 L, Monocytes (%) (Auto) 8.6 H, Eosinophils (%) (Auto) 0.8, Basophils (%) (Auto) 0.4, Neutrophils # (Auto) 5.8, Lymphocytes # (Auto) 1.2 L, Monocytes # (Auto) 0.7, Eosinophils # (Auto) 0.1, Basophils # (Auto) 0.0, Calcium Level 9.3 Microbiology Microbiology 12/24/18 Blood Culture - Preliminary, Resulted No Growth after 72 hours. All specime... 12/24/18 Blood Culture - Preliminary, Resulted No Growth after 72 hours. All specime... 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 Anemia of chronic disease Patient will be going to the operating room today. We will start of a diagnostic laparoscopy hopefully send some specimen for frozen section to determine the length of resection that we need. She most likely will end up with a right colectomy. I reviewed with her the plan for surgery including its risks and benefits. We spoke about risks of bleeding, infection, possible need for transfusion and its attendant risks, bowel injury, vascular injury, anastomotic leakage, possible subsequent hernia formation. All her questions and concerns were likewise addressed at this time. She remains in antibiotics She has 2 units of packed RBCs crossmatched for possible need for transfusion. Plan / VTE VTE Prophylaxis Ordered?: Yes SABINA GRIJALVA MD Dec 28, 2018 09:46
[2018-12-28] MEDS ORDERED: metroNIDAZOLE/NACL 500MG(5MG/ML)100 ML BAG (S0030) As Ordered ONE (11:00)
[2018-12-28] MEDS ORDERED: HYDROmorphone HCL 2 MG/ML 1ML VIAL (J1170) As Ordered ONE (12:15)
[2018-12-28] MEDS ORDERED: ePHEDrine SULFATE 25 MG/5 ML(5MG/ML) SYRINGE As Ordered ONE (12:45)
[2018-12-28] MEDS ORDERED: BUPIVACAINE HCL 0.25% 10 ML VIAL As Ordered ONE (13:41)
[2018-12-28] MEDS ORDERED: BUPIVACAINE LIPOSOME/PF 1.3% 20ML VIAL (13.3MG/ML)(EXPAREL)(C9290 PER1MG) As Ordered ONE (13:41)
[2018-12-28] MEDS: LR 1,000 ML IV SCH ×2 (14:30→22:00)
[2018-12-28] MEDS ORDERED: KETOROLAC 30 MG/ML VIAL (J1885) As Ordered ONE (14:40)
[2018-12-28] MEDS ORDERED: CIPROFLOXACIN/D5W 400 MG/200 ML BAG (J0744) As Ordered ONE (14:43)
[2018-12-28] MEDS ORDERED: ONDANSETRON 4MG/2ML VIAL (J2405) IV PRN (14:45)
[2018-12-28] MEDS ORDERED: LR 1,000 ML IV SCH (14:45)
[2018-12-28] MEDS ORDERED: PERCOCET 5MG/325MG TAB PO PRN (14:45)
[2018-12-28] MEDS ORDERED: fentaNYL 100 MCG/2 ML INJECTION (J3010) IV PRN (14:45)
[2018-12-28] MEDS: KETOROLAC 30 MG/ML VIAL (J1885) IV SCH ×2 (14:45→22:28)
[2018-12-28] MEDS: PANTOPRAZOLE 40MG INJ (PROTONIX) (C9113) IV SCH (18:08)
--- NOTE | 2018-12-28 18:48 | ROOPDOC ---
[facility] Report Of Operation Report of Operation DATE OF PROCEDURE: 12/28/18 PREPROCEDURE DIAGNOSES: perforated appendicitis, mucocoele vs tumor of appendix. POSTPROCEDURE DIAGNOSES: same. PROCEDURE: Diagnostic Laparoscopy, Open Right Colectomy, biopsy of nodule of liver. SURGEON: Jeff Jackson MD SURVEILLANCE SUPERVISOR: Ren Falk MD ANESTHESIA: General Anesthesia. ESTIMATED BLOOD LOSS: Approximately 100 mL. COMPLICATIONS: none. REMARKS: enlarged appendix, thick white appearance, contained perforation at the base of the appendix with abscess, bulky lymph nodes. PROCEDURE NOTE: 63 F found to have an abnormally enlarged appendix, with associated perforation and abscess. DESCRIPTION OF PROCEDURE: The patient was brought to the operating room and placed on the operating table. She is receiving ciprofloxacin and metronidazole IV and scheduled dose of since admission to the hospital for the perforated appendicitis and contained abscess. Compression boots were placed on both lower extremities were DVT prophylaxis. Her last dose of subcutaneous heparin was given last night. After induction of general endotracheal anesthesia, a Kam catheter was placed. Her abdomen was widely prepped and draped in usual sterile fashion. Time-outs were performed using both preinduction and pre-incision safety checklists to verify correct patient, procedure, site, and additional critical information prior to beginning the procedure. A Veress needle was introduced into the abdominal cavity via an incision above the umbilicus. Adequate intra-abdominal placement was confirmed with saline drop technique and pneumoperitoneum was achieved to a pressure of 15 mmHg. A 5 mm optical trocar was inserted under direct vision of a 30 5 mm laparoscope. Insertion site was inspected for injury and none was found. She was then placed in slight Trendelenburg position her right side tilted up to allow for adequate view of the right lower quadrant area. I placed a 5 mm left lower quadrant port and a 5 mm infraumbilical port at the midline. On initial diagnostic laparoscopy, there was a piece of omentum tethered to the abdominal wall underneath the umbilical cleft from her previous surgery. She also has had a previous cholecystectomy and there were omental adhesions likewise part of the transverse colon that was adhered to the lower lip of the liver. The liver itself is mostly smooth though fatty replaced. There is a tiny millimeter sized cyst at the right lobe of the liver and close to it is a whitish nodule about 2 mm in size. No other abnormalities were found. There were no free fluid or ascites. Right colon appears tethered slightly towards the lower portion of the liver. The distal ileum is adhered to the right side of the abdominal wall before this inserts to the cecum. On initial visualization, there is a whitish thick encapsulated soft tubular structure at the lateral portion of the cecum which initially appears "ovary" like in appearance but on palpation is soft, "cystic" and non-solid in character. The colon and mesentery of the right colon itself appears bulky with a hardened area, that is difficulty to manipulate over at the hepatic flexure portion. The rest of the transverse colon and omentum appears within normal save for some adhesion of the omentum to the falciform ligament and liver. the transverse colon appears moderately enlarged, distended but quintana are soft. I started working on the omental adhesions to the abdominal wall, falciform ligament and to the liver. On examinatiion of the mesentery of the right colon, this seems to be shortened, slightly puckered in appearance with hard nodules that I presume are lymph nodes. Part of the small bowel mesentery of distal ileum is adhered to the colon mesentery. I began my surgery by doing a lateral to medial dissection freeing up the small bowel adhesion to the lateral abdominal wall to free up the terminal ileum and then the lateral attachments of the cecum and ascending colon up towards the hepatic flexure. There was some difficulty medially mobilizing the portion of the hepatic flexure as this seems to be tethered to the nearby tissues including the edge of the liver, possibly the duodenum. I then proceeded with freeing up the transverse colon from its adhesions to the right lobe of the liver. Starting at the midlne transverse colon, the gastrocolic ligament was divided going towards the hepatic flexure, likewise I divided the omentum and pushed this away from the field of view. On approaching the adhesions towards the liver, I carefully worked on freeing this up with the ligasure device. There is one portion of the adhesions that seems tubular in nature and dives down deep into the underside of the liver and up towards the mesentery of the transverse colon. I worked around the area and was able to identify the duodenum underneath it. It was not clear what this structure was but this seems to tether around the duodenum preventing me to fully dissect this away from the transverse colon. I left this alone for the meantime and proceeded back laterally in an attempt to the connect the lateral dissection to the superior dissection. At this point I'm able to mobilize most of the ascending and hepatic flexure medially but seems to be stuck right towards where I expected duodenum to be with some scarring around the area. This is also made difficult by the fact that superiorly I could not with sufficient degree of certainty that I could go through that tubular area that is caught up in between the superior portion of the hepatic flexure and duodenum and there is a lot of bulkiness in the mesentery along the path of the ileocolic artery and tethering of the small bowel mesentery to the right colon mesentery. At this point have decided to convert to open surgery to further define that the area by the duodenum. The abdomen was deflated. Starting at around the umbilical port site I opened up the midline periumbilical area and a vertical fashion to create a minilaparotomy incision roughly about 5-6 cm in length at the fascial level extending above the umbilicus and slightly below it. After going through the subcutaneous tissue and opening up the fascia and the direct vision a Carson self-retaining retractor was placed. The abdomen was washed out and examined the right colon continuing the dissection inferiorly. I took down the remaining adhesions of the small bowel mesentery to the right colon mesentery. I then divided the small bowel about 5 cm before the insertion to the right colon with a 75 FORTUNATO stapler with a blue load. This allowed me to fully retract the right colon medially and superiorly and further dissect the mesentery of the right colon off the general this fascia and the duodenal sweep mainly with blunt dissection using Kitner and sponge sticks. I then turned my attention over the area between the liver, duodenum and post hepatic flexure of the colon. I further dissected off from this area was able to create a window around the hard tubular structure in between the right colon mesentery and the duodenal sweep. As I was developing this area and got into the pericolonic abscess with some mild spillage of the abscess around the area but not into the whole of the duodenum. This was controlled with suction and I sent off cultures of the abscess. Interestingly this decompressed the enlarged appendix. I worked on the plane in between the tubular structure in the superior and lateral portion of the duodenal sweep. This doesn't seem to be the correct area for the bile duct and the only thing it could be is probably the right colic tethered slightly more lateral than were expected to be. I continued developing the window around this tubular structure and the duodenum and once did have an adequate plane I went through this with the LigaSure device. This just turned out to be some hardened adhesive band. As disc fell off I was able to complete dissecting the plane in between the right colon and the duodenal sweep. At this point I skeletonized around the course of the ileocolic mesentery going BN the hardened, nodular areas were I presume are enlarged lymph nodes. The ileocolic vessels were transected using an echelon 60 mm stapler with a vascular load. The rest of the mesentery and adhesions between the retroperitoneum and the right colon was easily transected. I chose an area at the transverse colon beyond the inflamed area of the colon. I created a window behind the colon into the mesentery and transected the transverse colon with the Endo FORTUNATO stapler with a green load. The rest of the attachments of the right colon was easily divided next and the specimen removed. I asked the pathologist to sample the area around the appendix and perforation to see if there is any evidence of cancer and what type of cancer this. The pathologist called and reported only inflammatory findings from this. At this point I washed out the abdomen with a couple liters of warm saline and checked for after adequate hemostasis. I continued my abdominal exploration getting around the liver. As I previously mentioned small cyst at the dorsal side of the liver and about a 2 mm hardened whitish nodule. I sampled the widest nodule using Bovie cautery and the LigaSure device. I packed the liver wound with Surgicel until and adequate hemostasis. I then marked on creating a [id number] anastomosis between my small bowel and transverse colon. I freed up further the attachments of the gastrocolic ligament and likewise the omentum and epiploic appendages to prepare the site of transverse colon for anastomosis. I turned my attention towards the left side of the abdomen where she initially was reporting some discomfort which led her to her doctor in the emergency room. She reports an incomplete colonoscopy this past August followed by a barium enema showing mostly diverticulosis. There is an area about 3 cm at the proximal sigmoid colon where the wall feels hardened. The area before and after this seems to be healthy. There is no gross evidence of a proximal obstruction. I then aligned the the small bowel and transverse colon and created a [id number] anastomosis. An enterotomy colotomy was created around the edges of the staple line in both loops of bowel. Using a 75 mm FORTUNATO stapler with a blue load the anastomosis was created. I inspected the anastomosis for bleeding and adequacy and then closed the enterocolostomy with another firing of the second 5 mm stapler with a blue load removing the previous staple lines on both the colon and small bowel. Bleeding points were cauterized and points where the fartun met were reinforced with 3-0 silk including the crotch of the anastomosis. I examined the mesenteric defect and this was quite wide and is not amenable to closure. Again I checked for adequate hemostasis and made sure remaining fluid col lections were suctioned off. I again rechecked the site of the liver biopsy and is no longer bleeding at this point. I placed the seal glue at this area and as well as at the staple line anastomosis. The abdominal contents were returned in its anatomic position in the inside the abdomen and the omentum was draped around the anastomosis. We change Down syndrome gloves and used a closing tray with clean instruments. I then closed the fascial incision using one looped PDS in a running fashion. The subcutaneous tissue was examined for hemostasis and irrigated. All the skin incisions including those of the port sites were closed with fartun. Gauze dressings covered with tape was then used for wound coverage. Patient was promptly awakened, extubated. She was brought to recovery room stable. Counts of sponges and instruments were verified correct. JEFF JACKSON MD Dec 28, 2018 18:48
[2018-12-28] MEDS: ALVIMOPAN 12 MG CAPSULE (ENTEREG) PO SCH (20:11)
[2018-12-29] VITALS: BP 123/74
[2018-12-29 04:00] VITALS: BP 124/73
[2018-12-29] MEDS: metroNIDAZOLE 500 MG in APPROPRIATE DILUENT 1 EA IV SCH ×3 (04:41→20:14)
[2018-12-29] MEDS: KETOROLAC 30 MG/ML VIAL (J1885) IV SCH ×3 (05:54→22:55)
[2018-12-29] MEDS: CIPROFLOXACIN 400 MG in APPROPRIATE DILUENT 1 EA IV SCH ×2 (05:54→18:00)
[2018-12-29] MEDS: HEPARIN SOD (PORCINE) 5000 UNITS/ML VIAL SQ SCH ×3 (05:55→21:23)
[2018-12-29 07:24] LABS: BASO % 0.1 % (0.0-1.0); EOS % 0.1 % (0.0-3.0); HEMATOCRIT 27.4 % (36.0-47.0); HEMOGLOBIN 8.8 g/dl (12.0-15.5); LYMPH # 0.9 10^3/uL (1.5-4.5); LYMPH % 5.8 % (24.0-44.0); MEAN CORPUSCULAR HEMOGLOBIN 28.3 pg (27.0-33.0); MEAN CORPUSCULAR HGB CONC 32.1 g/dl (32.0-36.5); MEAN CORPUSCULAR VOLUME 88.1 fl (80.0-96.0); MONO # 1.4 10^3/uL (0.0-0.8); NEUTROPHILS # 13.3 10^3/uL (1.8-7.7); PLATELET COUNT, AUTOMATED 277 10^3/uL (150-450); RED BLOOD COUNT 3.11 10^6/uL (4.00-5.40); WHITE BLOOD COUNT 15.8 10^3/uL (4.0-10.0)
--- NOTE | 2018-12-29 07:39 | IPNPDOC ---
Subjective General Date/Time Seen The patient was seen on 12/29/18 at 07:36. Subject Chief Complaint/History The patient is a 63-year-old female admitted with a reason for visit of Appendicitis With Abscess Mucocele Appendix.... She reports she is fairly comfortable with mild incisional discomfort but denies any nausea or vomiting. She is not having any flatus yet. Nurse reports low urine output that looks concentrated overnight area and otherwise she has been hemodynamically stable. Current Medications Current Medications Current Medications Acetaminophen (Tylenol Tab) 650 mg Q4HP PRN PO MILD PAIN or TEMP > 101; Start 12/24/18 at 16:45 Alvimopan (Entereg) 12 mg BID PO Last administered on 12/28/18at 20:11; Start 12/28/18 at 21:00; Stop 01/04/19 at 20:59 Ciprofloxacin 400 mg/IV Miscellaneous Supplies 200 ml @ 200 mls/hr Q12H IV Last administered on 12/29/18at 05:54; Start 12/24/18 at 18:00 Fentanyl Citrate (Sublimaze) 25 mcg Q5MP PRN IV MODERATE PAIN (PS 4-7); Start 12/28/18 at 14:45; Stop 12/28/18 at 15:45; Status DC Heparin Sodium (Porcine) (Heparin) 5,000 units Q8H SC Last administered on 12/27/18at 21:31; Start 12/24/18 at 22:00; Stop 12/27/18 at 23:00; Status DC Heparin Sodium (Porcine) (Heparin) 5,000 units Q8H SQ Last administered on 12/29/18at 05:55; Start 12/29/18 at 06:00 Home Med (Med Rec Complete!) ASDIRECTED XX ; Start 12/24/18 at 17:00; Stop 12/24/18 at 17:00; Status DC Ketorolac Tromethamine (ToRADol) 30 mg Q8H IV Last administered on 12/29/18at 05:54; Start 12/28/18 at 15:00; Stop 01/02/19 at 14:59 Lactated Ringer's 1,000 ml @ 80 mls/hr [id number] IV ; Start 12/28/18 at 14:45; Stop 12/28/18 at 15:45; Status DC Lactated Ringer's 1,000 ml @ 125 mls/hr Q8H IV Last administered on 12/28/18at 22:00; Start 12/28/18 at 14:30 Magnesium Hydroxide (Milk Of Magnesia) 30 ml BID PO Last administered on 12/27/18at 21:30; Start 12/26/18 at 09:00 Metronidazole 500 mg/IV Miscellaneous Supplies 100 ml @ 100 mls/hr Q8H IV Last administered on 12/29/18at 04:41; Start 12/24/18 at 20:00 Morphine Sulfate (Morphine Sulfate Inj) 4 mg Q2HP PRN IV SEVERE PAIN (PS 8-10); Start 12/24/18 at 16:45 Ondansetron HCl (ZOFRAN INJection) 4 mg Q4HP PRN IV NAUSEA OR VOMITING Last administered on 12/28/18at 14:46; Start 12/28/18 at 14:45; Stop 12/28/18 at 15:45; Status DC Ondansetron HCl (ZOFRAN INJection) 4 mg Q6HP PRN IV NAUSEA OR VOMITING; Start 12/24/18 at 16:45 Oxycodone/ Acetaminophen (Percocet 5mg/ 325mg Tablet) 1 tab ASDIRECTED PRN PO MILD/MODERATE PAIN (PS 1-7); Start 12/28/18 at 14:45; Stop 12/28/18 at 15:45; Status DC Oxycodone/ Acetaminophen (Percocet 5mg/ 325mg Tablet) 1 tab Q4HP PRN PO MODERATE PAIN (PS 5-7); Start 12/24/18 at 16:45 Oxycodone/ Acetaminophen (Percocet 5mg/ 325mg Tablet) 2 tab Q6HP PRN PO SEVERE PAIN (PS 8-10); Start 12/24/18 at 16:45 Pantoprazole Sodium (Protonix) 40 mg DAILY PO Last administered on 12/27/18at 08:23; Start 12/24/18 at 09:00; Stop 12/28/18 at 14:15; Status DC Pantoprazole Sodium (Protonix) 40 mg Q24H IV Last administered on 12/28/18at 18:08; Start 12/28/18 at 18:00 Allergies Coded Allergies: No Known Drug Allergies (Verified Allergy, Unknown, 12/24/18) Objective Physical Examination Examination GENERAL APPEARANCE:Patient seen, laying in bed, awake, alert, and oriented. Comfortable, in no acute distress. SKIN: Warm and dry. HEENT: Mild pale palpebral conjunctiva. Lips appear mildly dry. NECK: Supple, no thyromegaly. No obvious jugular venous distention. LUNGS: Clear to auscultation bilaterally. No wheezing appreciated. HEART: No chest wall abnormalities. Regular rate and rhythm with no murmurs appreciated. ABDOMEN: Abdomen is mildly obese, soft, and mildly distended and tympanitic to percussion, hypoactive bowel sounds. Dressings over the midline incision as well as the laparoscopic incisions are dry. Mild discomfort with palpation otherwise no tenderness. EXTREMITIES: Minimal lower extremity edema, right more than left. Vital Signs Vital Signs Date Time Temp Pulse Resp B/P (MAP) Pulse Ox O2 Delivery O2 Flow Rate FiO2 12/29/18 04:00 97.5 65 20 124/73 (90) 97 12/28/18 20:50 2.0 12/24/18 19:34 Room Air I&Os I&O- Last 24 Hours up to 6 AM 12/29/18 06:00 Intake Total 4890 ml Output Total 750 ml Balance 4140 ml Laboratory Data Labs 24H Laboratory Tests 2 12/29/18 06:47: Immature Granulocyte % (Auto) 1.0, White Blood Count 15.8H, Red Blood Count 3.11L, Hemoglobin 8.8L, Hematocrit 27.4L, Mean Corpuscular Volume 88.1, Mean Corpuscular Hemoglobin 28.3, Mean Corpuscular Hemoglobin Concent 32.1, Red Cell Distribution Width 12.4, Platelet Count 277, Neutrophils (%) (Auto) 84.0H, Lym phocytes (%) (Auto) 5.8L, Monocytes (%) (Auto) 9.0H, Eosinophils (%) (Auto) 0.1, Basophils (%) (Auto) 0.1, Neutrophils # (Auto) 13.3H, Lymphocytes # (Auto) 0.9L, Monocytes # (Auto) 1.4H, Eosinophils # (Auto) 0.0, Basophils # (Auto) 0.0, Nucleated Red Blood Cells % (auto) 0.0 CBC/BMP Laboratory Tests 12/29/18 06:47 Red Blood Count 3.11 L, Mean Corpuscular Volume 88.1, Mean Corpuscular Hemoglobin 28.3, Mean Corpuscular Hemoglobin Concent 32.1, Red Cell Distribution Width 12.4, Neutrophils (%) (Auto) 84.0 H, Lymphocytes (%) (Auto) 5.8 L, Monocytes (%) (Auto) 9.0 H, Eosinophils (%) (Auto) 0.1, Basophils (%) (Auto) 0.1, Neutrophils # (Auto) 13.3 H, Lymphocytes # (Auto) 0.9 L, Monocytes # (Auto) 1.4 H, Eosinophils # (Auto) 0.0, Basophils # (Auto) 0.0 Microbiology Microbiology 12/24/18 Blood Culture - Preliminary, Resulted No Growth after 72 hours. All specime... 12/24/18 Blood Culture - Preliminary, Resulted No Growth after 72 hours. All specime... 12/28/18 Gram Stain - Final, Resulted 12/28/18 Wound Culture, Resulted Pending 12/28/18 Anaerobic Culture, Resulted Pending Impression Postop day 1 after right colectomy for perforated appendix with abscess, mucocele versus appendiceal tumor She appears to be doing well. She is very comfortable and has started to ambulate to hallways this morning. She steady on her feet. Still no bowel function yet but abdomen is looked to be terribly distended. She is on clear liquids and we will maintain her on this until we see some signs of bowel function. Continue on antibiotics for the abscess and appendiceal perforation. We will await pathology for further recommendations and treatment with regards to the enlarged, suspicious appendix. She is on DVT prophylaxis. Her Kam catheter will be removed today. She still probably is on the dry side and I will maintain her in the IV fluids. Plan / VTE VTE Prophylaxis Ordered?: Yes Plan / Urinary Catheter Urinary Catheter: D/C SABINA Ocampo MD Dec 29, 2018 07:39
[2018-12-29] MEDS ORDERED: SODIUM CHLORIDE 0.9% 1000ML IV ONE (07:45)
[2018-12-29 07:54] LABS: CREATININE FOR GFR 1.34 MG/DL (0.55-1.30); GLOMERULAR FILTRATION RATE 42.7 (>45); POTASSIUM SERUM 3.6 MEQ/L (3.5-5.1)
[2018-12-29 08:00] VITALS: BP 130/74
[2018-12-29] MEDS: ALVIMOPAN 12 MG CAPSULE (ENTEREG) PO SCH ×2 (08:57→20:13)
[2018-12-29] MEDS: LR 1,000 ML IV SCH ×2 (08:58→17:35)
[2018-12-29] MEDS: MOM 30ML SUSPENSION UDC PO SCH ×2 (09:00→20:18)
[2018-12-29 16:15] VITALS: BP 134/77
[2018-12-29] MEDS: PANTOPRAZOLE 40MG INJ (PROTONIX) (C9113) IV SCH (18:00)
[2018-12-29 20:00] VITALS: BP 138/81
[2018-12-30] VITALS: BP 136/72
[2018-12-30] MEDS: LR 1,000 ML IV SCH (03:11)
[2018-12-30] MEDS: metroNIDAZOLE 500 MG in APPROPRIATE DILUENT 1 EA IV SCH (03:59)
[2018-12-30] MEDS: CIPROFLOXACIN 400 MG in APPROPRIATE DILUENT 1 EA IV SCH (05:44)
[2018-12-30] MEDS: HEPARIN SOD (PORCINE) 5000 UNITS/ML VIAL SQ SCH ×3 (05:45→21:29)
[2018-12-30 06:38] LABS: BASO % 0.1 % (0.0-1.0); EOS # 0.1 10^3/uL (0.0-0.50); EOS % 0.7 % (0.0-3.0); HEMATOCRIT 23.8 % (36.0-47.0); HEMOGLOBIN 7.8 g/dl (12.0-15.5); LYMPH # 0.9 10^3/uL (1.5-4.5); LYMPH % 9.9 % (24.0-44.0); MEAN CORPUSCULAR HEMOGLOBIN 28.8 pg (27.0-33.0); MEAN CORPUSCULAR HGB CONC 32.8 g/dl (32.0-36.5); MEAN CORPUSCULAR VOLUME 87.8 fl (80.0-96.0); NEUTROPHILS # 7.4 10^3/uL (1.8-7.7); NEUTROPHILS % 77.8 % (36.0-66.0); PLATELET COUNT, AUTOMATED 199 10^3/uL (150-450); RED BLOOD COUNT 2.71 10^6/uL (4.00-5.40); WHITE BLOOD COUNT 9.5 10^3/uL (4.0-10.0)
[2018-12-30] MEDS: KETOROLAC 30 MG/ML VIAL (J1885) IV SCH ×3 (06:43→23:41)
[2018-12-30 07:05] LABS: CALCIUM LEVEL 8.5 MG/DL (8.8-10.2); CREATININE FOR GFR 1.27 MG/DL (0.55-1.30); GLOMERULAR FILTRATION RATE 45.4 (>45); POTASSIUM SERUM 3.7 MEQ/L (3.5-5.1)
[2018-12-30 08:00] VITALS: BP 128/66
[2018-12-30] MEDS: ALVIMOPAN 12 MG CAPSULE (ENTEREG) PO SCH ×2 (08:06→21:27)
[2018-12-30] MEDS: SENOKOT S TAB PO SCH (08:06)
--- NOTE | 2018-12-30 09:22 | IPNPDOC ---
Subjective General Date/Time Seen The patient was seen on 12/30/18 at 07:00. Subject Chief Complaint/History The patient is a 63-year-old female admitted with a reason for visit of Appendicitis With Abscess Mucocele Appendix.... Patient reports feeling better today. She has a good night sleep. She reports she is comfortable. She had 2 small bowel movements yesterday with also reports burping and not really sure if she is passing flatus. She's emulating to the hallways. She is denying any shortness of breath, chest pain, severe abdominal pain. She reports mild gas pains. Current Medications Current Medications Current Medications Acetaminophen (Tylenol Tab) 650 mg Q4HP PRN PO MILD PAIN or TEMP > 101; Start 12/24/18 at 16:45 Alvimopan (Entereg) 12 mg BID PO Last administered on 12/29/18at 20:13; Start 12/28/18 at 21:00; Stop 01/04/19 at 20:59 Ciprofloxacin 400 mg/IV Miscellaneous Supplies 200 ml @ 200 mls/hr Q12H IV Last administered on 12/30/18at 05:44; Start 12/24/18 at 18:00 Fentanyl Citrate (Sublimaze) 25 mcg Q5MP PRN IV MODERATE PAIN (PS 4-7); Start 12/28/18 at 14:45; Stop 12/28/18 at 15:45; Status DC Heparin Sodium (Porcine) (Heparin) 5,000 units Q8H SC Last administered on 12/27/18at 21:31; Start 12/24/18 at 22:00; Stop 12/27/18 at 23:00; Status DC Heparin Sodium (Porcine) (Heparin) 5,000 units Q8H SQ Last administered on 12/30/18at 05:45; Start 12/29/18 at 06:00 Home Med (Med Rec Complete!) ASDIRECTED XX ; Start 12/24/18 at 17:00; Stop 12/24/18 at 17:00; Status DC Ketorolac Tromethamine (ToRADol) 30 mg Q8H IV Last administered on 12/29/18at 22:55; Start 12/28/18 at 15:00; Stop 01/02/19 at 14:59 Lactated Ringer's 1,000 ml @ 80 mls/hr [id number] IV ; Start 12/28/18 at 14:45; Stop 12/28/18 at 15:45; Status DC Lactated Ringer's 1,000 ml @ 125 mls/hr Q8H IV Last administered on 12/30/18at 03:11; Start 12/28/18 at 14:30 Magnesium Hydroxide (Milk Of Magnesia) 30 ml BID PO Last administered on 12/27/18at 21:30; Start 12/26/18 at 09:00; Stop 12/30/18 at 06:29; Status DC Metronidazole 500 mg/IV Miscellaneous Supplies 100 ml @ 100 mls/hr Q8H IV Last administered on 12/30/18at 03:59; Start 12/24/18 at 20:00 Morphine Sulfate (Morphine Sulfate Inj) 4 mg Q2HP PRN IV SEVERE PAIN (PS 8-10); Start 12/24/18 at 16:45 Ondansetron HCl (ZOFRAN INJection) 4 mg Q4HP PRN IV NAUSEA OR VOMITING Last administered on 12/28/18at 14:46; Start 12/28/18 at 14:45; Stop 12/28/18 at 15:45; Status DC Ondansetron HCl (ZOFRAN INJection) 4 mg Q6HP PRN IV NAUSEA OR VOMITING; Start 12/24/18 at 16:45 Oxycodone/ Acetaminophen (Percocet 5mg/ 325mg Tablet) 1 tab ASDIRECTED PRN PO MILD/MODERATE PAIN (PS 1-7); Start 12/28/18 at 14:45; Stop 12/28/18 at 15:45; Status DC Oxycodone/ Acetaminophen (Percocet 5mg/ 325mg Tablet) 1 tab Q4HP PRN PO MOD ERATE PAIN (PS 5-7); Start 12/24/18 at 16:45 Oxycodone/ Acetaminophen (Percocet 5mg/ 325mg Tablet) 2 tab Q6HP PRN PO SEVERE PAIN (PS 8-10); Start 12/24/18 at 16:45 Pantoprazole Sodium (Protonix) 40 mg DAILY PO Last administered on 12/27/18at 08:23; Start 12/24/18 at 09:00; Stop 12/28/18 at 14:15; Status DC Pantoprazole Sodium (Protonix) 40 mg Q24H IV Last administered on 12/29/18at 18:00; Start 12/28/18 at 18:00 Senna/Docusate Sodium (Senokot S) 1 tab DAILY PO ; Start 12/30/18 at 09:00; Status UNV Allergies Coded Allergies: No Known Drug Allergies (Verified Allergy, Unknown, 12/24/18) Objective Physical Examination Examination GENERAL APPEARANCE: Sitting up on bed, looks comfortable. SKIN: Warm and moist. HEENT: Mild pale palpebral conjunctiva, lips are moist. NECK: Supple, no thyromegaly. No obvious jugular venous distention. LUNGS: Clear to auscultation bilaterally. No wheezing appreciated. HEART: No chest wall abnormalities. Regular rate and rhythm with no murmurs appreciated. ABDOMEN: Abdomen is mildly obese, loose pannus, soft, minimally distended. Midline dressing is clean, dry and intact. Mildly tender at the incision, no rebound or guarding. Mild tympany to percussion. EXTREMITIES: Minimal lower extremity edema. Vital Signs Vital Signs Date Time Temp Pulse Resp B/P (MAP) Pulse Ox O2 Delivery O2 Flow Rate FiO2 12/30/18 00:00 98.4 70 18 136/72 (93) 97 12/28/18 20:50 2.0 12/24/18 19:34 Room Air I&Os I&O- Last 24 Hours up to 6 AM 12/30/18 06:00 Intake Total 6565 ml Output Total 1426 ml Balance 5139 ml Laboratory Data Labs 24H Laboratory Tests 2 12/30/18 06:07: Immature Granulocyte % (Auto) 1.5, White Blood Count 9.5, Red Blood Count 2.71L, Hemoglobin 7.8L, Hematocrit 23.8L, Mean Corpuscular Volume 87.8, Mean Corpuscular Hemoglobin 28.8, Mean Corpuscular Hemoglobin Concent 32.8, Red Cell Distribution Width 12.3, Platelet Count 199, Neutrophils (%) (Auto) 77.8H, Lymphocytes (%) (Auto) 9.9L, Monocytes (%) (Auto) 10.0H, Eosinophils (%) (Auto) 0.7, Basophils (%) (Auto) 0.1, Neutrophils # (Auto) 7.4, Lymphocytes # (Auto) 0.9L, Monocytes # (Auto) 1.0H, Eosinophils # (Auto) 0.1, Basophils # (Auto) 0.0, Nucleated Red Blood Cells % (auto) 0.0 CBC/BMP Laboratory Tests 12/30/18 06:07 Red Blood Count 2.71 L, Mean Corpuscular Volume 87.8, Mean Corpuscular Hemoglobin 28.8, Mean Corpuscular Hemoglobin Concent 32.8, Red Cell Distribution Width 12.3, Neutrophils (%) (Auto) 77.8 H, Lymphocytes (%) (Auto) 9.9 L, Monocytes (%) (Auto) 10.0 H, Eosinophils (%) (Auto) 0.7, Basophils (%) (Auto) 0.1, Neutrophils # (Auto) 7.4, Lymphocytes # (Auto) 0.9 L, Monocytes # (Auto) 1.0 H, Eosinophils # (Auto) 0.1, Basophils # (Auto) 0.0 Microbiology Microbiology 12/24/18 Blood Culture - Final, Complete NO GROWTH AFTER 5 DAYS 12/24/18 Blood Culture - Final, Complete NO GROWTH AFTER 5 DAYS 12/28/18 Gram Stain - Final, Resulted 12/28/18 Wound Culture, Resulted Pending 12/28/18 Anaerobic Culture, Resulted Pending Impression POD2 right colectomy, biopsy of liver nodule Anemia She is doing much better overnight today and starting to show some intermittent signs of bowel function. No signs of sepsis or severe inflammatory response. Her leukocytosis has gone back to normal now. She still has mild anemia probably worsened by hemodilution. Her urine output has picked up overnight. Advance diet slowly. We'll start her on soft diet today and hopefully both residue diet by tomorrow saline lock IVF continue ambulation DVT prophylaxis continue antibiotics cipro/flagyl- I converted this to PO. Patient had a contained abscess with some mild spillage during surgery Pathology not available yet Plan / VTE VTE Prophylaxis Ordered?: Yes Plan / Urinary Catheter Urinary Catheter: D/C SABINA Ocampo MD Dec 30, 2018 07:01
[2018-12-30] MEDS: METOPROLOL TART 25 MG TABLET PO SCH ×2 (09:53→21:28)
[2018-12-30] MEDS: metroNIDAZOLE (FLAGYL) 500 MG TAB PO SCH ×2 (14:13→21:29)
[2018-12-30 16:00] VITALS: BP 125/60
[2018-12-30] MEDS: CIPROFLOXACIN 500 MG TAB PO SCH (18:04)
[2018-12-30 20:00] VITALS: BP 152/78
[2018-12-31] VITALS: BP 134/75
[2018-12-31] MEDS: KETOROLAC 30 MG/ML VIAL (J1885) IV SCH ×2 (06:31→14:14)
[2018-12-31] MEDS: CIPROFLOXACIN 500 MG TAB PO SCH (06:32)
[2018-12-31] MEDS: metroNIDAZOLE (FLAGYL) 500 MG TAB PO SCH ×2 (06:32→14:13)
[2018-12-31] MEDS: HEPARIN SOD (PORCINE) 5000 UNITS/ML VIAL SQ SCH ×2 (06:32→14:00)
[2018-12-31 07:08] LABS: BASO % 0.2 % (0.0-1.0); EOS # 0.2 10^3/uL (0.0-0.50); EOS % 2.5 % (0.0-3.0); HEMATOCRIT 25.4 % (36.0-47.0); HEMOGLOBIN 8.3 g/dl (12.0-15.5); LYMPH % 10.5 % (24.0-44.0); MEAN CORPUSCULAR HEMOGLOBIN 28.1 pg (27.0-33.0); MEAN CORPUSCULAR HGB CONC 32.7 g/dl (32.0-36.5); MEAN CORPUSCULAR VOLUME 86.1 fl (80.0-96.0); MONO # 0.8 10^3/uL (0.0-0.8); MONO % 8.7 % (0.0-5.0); NEUTROPHILS # 7.2 10^3/uL (1.8-7.7); NEUTROPHILS % 76.4 % (36.0-66.0); PLATELET COUNT, AUTOMATED 214 10^3/uL (150-450); RED BLOOD COUNT 2.95 10^6/uL (4.00-5.40); WHITE BLOOD COUNT 9.5 10^3/uL (4.0-10.0)
[2018-12-31 07:18] LABS: CALCIUM LEVEL 9.2 MG/DL (8.8-10.2); CREATININE FOR GFR 1.32 MG/DL (0.55-1.30); GLOMERULAR FILTRATION RATE 43.4 (>45); POTASSIUM SERUM 3.6 MEQ/L (3.5-5.1)
[2018-12-31 08:15] VITALS: BP 134/80
[2018-12-31 08:20] VITALS: BP 134/80
[2018-12-31] MEDS: METOPROLOL TART 25 MG TABLET PO SCH (08:20)
[2018-12-31] MEDS: SENOKOT S TAB PO SCH (08:20)
[2018-12-31] MEDS: ALVIMOPAN 12 MG CAPSULE (ENTEREG) PO SCH (08:20)
[2018-12-31] MEDS ORDERED: FERROUS GLUCONATE 324 MG TAB PO SCH (09:00)
[2018-12-31] MEDS ORDERED: CEFUROXIME 500 MG TAB PO SCH (13:00)
[2018-12-31 16:00] VITALS: BP 126/73
[2018-12-31] MEDS ORDERED: FLAG500T PO (16:15)
[2018-12-31] MEDS ORDERED: CEFU50TA PO (16:15)
[2018-12-31] MEDS ORDERED: FERR32TA PO (16:15)
[2018-12-31] MEDS ORDERED: PERCOCET PO (16:15)
--- NOTE | 2018-12-31 16:48 | DS.PDOC ---
Discharge Summary General Date of Admission Dec 24, 2018 at 16:33 Date of Discharge 12/31/2018 Attending Physician: SABINA GRIJALVA MD Discharge Summary PROCEDURES PERFORMED DURING STAY: Open right colectomy with ileocolic anastomosis ADMITTING DIAGNOSES: 1. Contained perforation of the appendix 2. 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 3. Anemia DISCHARGE DIAGNOSES: 1. Containing perforation of the appendix. 2. diverticulosis 3. Anemia COMPLICATIONS/CHIEF COMPLAINT: Appendicitis With Abscess Mucocele Appendix.... HISTORY OF PRESENT ILLNESS: Patient was instructed to go to the ER for evaluation when she had an outpatient CT scan of the abdomen and pelvis performed at [facility] early in the morning for a one week history of left sided abdominal pain and discomfort. Patient presented to her primary care provider last Friday with complaints of a one-week history of discomfort and pain located on the left side of the abdomen. She denies any accompanying (worsening) diarrhea fevers or chills. She reports discomfort with prolonged walking, sitting. She denies any sick contacts. She had a previous history of diverticulitis and was concerned this was another episode. She reports that her discomfort is more a nagging type of pain and this radiates to her lower back area. She was suspected to be passing out a kidney stone and a CT scan of the abdomen and pelvis was arranged for an outpatient. This was done early this morning at [facility]. After the CT scan was performed she was called back to go to the emergency room for further evaluation. At that time that she was in the ER she reports that her discomfort has actually gotten better for the past day. She currently rates this as a bout 3-12/23. She has no previous antibiotic course. She had previous colonoscopies performed. In our system she had one done in 2006. She reports she has had 2 other colonoscopies. The most recent one was done late last year by a Dr. Kemp in [place]. He was unable to complete it the cause of multiple diverticulosis. She reports she had a follow-up barium enema performed and no abnormalities were found in that study (was requested by a surgeon). On her previous colonoscopies no polyps have been found or removed. She has had a history of ovarian cancer about 8 years ago for which she had total abdominal hysterectomy performed. She also has had cholecystectomy performed and since then has been having loose bowel movements with periods of mild exacerbation so she was not sure if the diarrhea that she was having as part of what is going on right now or just because of her not having her gallbladder anymore. She also reports about a 40 pound history of weight loss since the start of the year which she was voluntarily doing my trying to improve her diet. She reports fair appetite and easily feeling full but denies any nausea, vomiting or abdominal distention. She reports minimal discomfort on the right side of her abdomen and only when this gets pushed during the examination. HOSPITAL COURSE: After evaluating patient in the emergency room admitted to the hospital under my care. I started her on empiric antibiotic therapy with ciprofloxacin and metronidazole IV for the perforated appendicitis and the abscess. I Turned a liquid diet and gave her twice a day milk of magnesia to slowly prep her for the surgery. She underwent laparoscopy and right colectomy on 12/28/2018 (hospital day 4). Intraoperatively I had spillage from the abscess collection which was controlled. Intraoperative cultures were sent. A right colectomy was performed for possibility that she has some form of malignancy involving her markedly enlarged and abnormal appearing appendix. She tolerated the procedure well and subsequently was admitted back to the medical surgical floor. She has been getting ketorolac IV as well as intermittent doses of morphine and Percocets for pain control which seems to be adequate for her. She had a low urine output in the first night and was given IV fluid bolus and eventually picked up her urine output the following morning. Her Kam catheter was removed at postop day 1. She was started on clear liquids that postop day 0 and continued to full liquids at about postop day 2. She started having consistent bowel function with initially loose stools at postop day 2. She continues to do well tolerating regular food which was started at postop day 3. On discharge her incisions were checked and this appears to be healing accordingly without any drainage. She is nondistended and is having regular bowel functions. She tolerated at least 2 solid meals prior to her discharge. At the time of discharge her pathology was available and I discussed the findings and pathology which mainly shows inflam matory findings consistent with the perforated appendicitis with abscess pockets as well as presence of small bowel lipoma. No malignancy was found on our specimen. DISCHARGE MEDICATIONS: Please see below. ALLERGIES: Please see below. PHYSICAL EXAMINATION ON DISCHARGE: VITAL SIGNS: Please see below. GENERAL: Comfortable HEENT: Mild pale palpebral conjunctiva, anicteric sclerae NECK: Supple, no distended jugular veins CARDIOVASCULAR EXAMINATION: Regular heart rate and rhythm with no murmurs RESPIRATORY EXAMINATION: Clear breath sounds auscultation bilaterally, no wheezing ABDOMINAL EXAMINATION: Obese, soft, loose pannus. Midline incision with fartun, clean, dry and intact. There are 3 lateral port sites that are also appeared to be healing accordingly with fartun. EXTREMITIES: Varicosities most prominent than the right lower extremity which is mildly enlarged compared to the left chronically. Minimal lower extremity edema SKIN: No rashes NEUROLOGICAL EXAMINATION: Awake, alert, oriented LABORATORY DATA: Please see below. IMAGING: CT abdomen and pelvis done at [facility] PROGNOSIS: Good ACTIVITY: Light activity 2-4 weeks. DIET: Regular diet. Advance as tolerated DISCHARGE PLAN: Patient is discharged home. Follow-up with me in 2 weeks' time DISPOSITION: . DISCHARGE INSTRUCTIONS: 1. As above 2. Follow-up with me as scheduled. ITEMS TO FOLLOWUP ON ON OUTPATIENT: 1. Previous barium enema done back in August to confirm finding soft diverticulosis on the left side DISCHARGE CONDITION: Stable. TIME SPENT ON DISCHARGE: Greater than 30 minutes. Vital Signs/I&Os Vital Signs Date Time Temp Pulse Resp B/P (MAP) Pulse Ox O2 Delivery O2 Flow Rate FiO2 12/31/18 08:20 68 134/80 12/31/18 08:15 97.9 16 98 12/28/18 20:50 2.0 I&O- Last 24 Hours up to 6 AM 12/31/18 06:00 Intake Total 840 ml Output Total 2500 ml Balance -1660 ml Laboratory Data Labs 24H Laboratory Tests 2 12/31/18 06:40: Immature Granulocyte % (Auto) 1.7, White Blood Count 9.5, Red Blood Count 2.95L, Hemoglobin 8.3L, Hematocrit 25.4L, Mean Corpuscular Volume 86.1, Mean Corpuscular Hemoglobin 28.1, Mean Corpuscular Hemoglobin Concent 32.7, Red Cell Distribution Width 12.6, Platelet Count 214, Neutrophils (%) (Auto) 76.4H, Lymp hocytes (%) (Auto) 10.5L, Monocytes (%) (Auto) 8.7H, Eosinophils (%) (Auto) 2.5, Basophils (%) (Auto) 0.2, Neutrophils # (Auto) 7.2, Lymphocytes # (Auto) 1.0L, Monocytes # (Auto) 0.8, Eosinophils # (Auto) 0.2, Basophils # (Auto) 0.0, Nucleated Red Blood Cells % (auto) 0.0, Anion Gap 7L, Glomerular Filtration Rate 43.4L, Blood Urea Nitrogen 8, Creatinine 1.32H, Sodium Level 138, Potassium Level 3.6, Chloride Level 108H, Carbon Dioxide Level 23, Calcium Level 9.2 CBC/BMP Laboratory Tests 12/31/18 06:40 Red Blood Count 2.95 L, Mean Corpuscular Volume 86.1, Mean Corpuscular H emoglobin 28.1, Mean Corpuscular Hemoglobin Concent 32.7, Red Cell Distribution Width 12.6, Neutrophils (%) (Auto) 76.4 H, Lymphocytes (%) (Auto) 10.5 L, Monocytes (%) (Auto) 8.7 H, Eosinophils (%) (Auto) 2.5, Basophils (%) (Auto) 0.2, Neutrophils # (Auto) 7.2, Lymphocytes # (Auto) 1.0 L, Monocytes # (Auto) 0.8, Eosinophils # (Auto) 0.2, Basophils # (Auto) 0.0, Calcium Level 9.2 Microbiology Microbiology 12/24/18 Blood Culture - Final, Complete NO GROWTH AFTER 5 DAYS 12/24/18 Blood Culture - Final, Complete NO GROWTH AFTER 5 DAYS 12/28/18 Gram Stain - Final, Resulted 12/28/18 Wound Culture - Preliminary, Resulted Escherichia Coli Escherichia Coli#2 12/28/18 Anaerobic Culture, Resulted Pending Discharge Medications Scheduled Cefuroxime Axetil (Cefuroxime) 500 Mg Tablet, 500 MG PO BID Cholecalciferol (Vitamin D3) (Vitamin D3) 2,000 Unit Capsule, 2,000 UNITS PO QPM, (Reported) Colestipol HCl (Micronized Colestipol HCl) 1 Gm Tablet, 1 GM PO QPM, (Reported) Ferrous Gluconate (Ferrous Gluconate) 324 Mg Tablet, 324 MG PO DAILY Folic Acid/Vit B Complex and C (Super B Complex Tablet) 400 Mcg Tablet, 1 TAB PO QPM, (Reported) Metoprolol Tartrate (Metoprolol Tartrate) 25 Mg Tablet, 25 MG PO BID, (Reported) Metronidazole (Flagyl) 500 Mg Tablet, 500 MG PO Q8H Olmesartan Medoxomil (Olmesartan Medoxomil) 20 Mg Tablet, 20 MG PO QPM, (Reported) Scheduled PRN Bisacodyl (Dulcolax) 5 Mg Tablet.dr, 5 MG PO DAILY PRN for CONSTIPATION, (Reported) Docusate Sodium (Colace) 100 Mg Capsule, 100 MG PO DAILY PRN for CONSTIPATION, (Reported) Oxycodone/Acetaminophen (Oxycodone-Acetaminophen 5-325) 1 Each Tablet, 1-2 TAB PO Q4HP PRN for MODERATE PAIN (PS 5-7) Allergies Coded Allergies: No Known Drug Allergies (Verified Allergy, Unknown, 12/24/18) SABINA GRIJALVA MD Dec 31, 2018 12:42
== END 2018-12-31 16:50 | disposition home or self-care (01) | DRG 331 ==
LOC: M ED 13:17 → M ED INP 16:33 → M PED 19:40
PROVIDERS: ADMIT Surgery; ATTEND Surgery
PROC: 0FB00ZX Excision of Liver, Open Approach, Diagnostic (ICD-10-PCS; 2018-12-28)
PROC: 0DBB0ZZ Excision of Ileum, Open Approach (ICD-10-PCS; principal; 2018-12-28 09:45)
PROC: 0DBJ0ZZ Excision of Appendix, Open Approach (ICD-10-PCS; 2018-12-28 09:45)
DX: K35.21 Acute appendicitis with generalized peritonitis, with abscess (principal); K57.30 Diverticulosis of large intestine without perforation or abscess without bleeding; D64.9 Anemia, unspecified; Z79.899 Other long term (current) drug therapy; Z85.43 Personal history of malignant neoplasm of ovary; G47.33 Obstructive sleep apnea (adult) (pediatric); I10 Essential (primary) hypertension; E78.00 Pure hypercholesterolemia, unspecified

== ENCOUNTER → 2019-01-11 | Outpatient (CLI) | payer OTHER, BC ==
[~2019-01-11] MED LIST changes: +CEFU50TA PO; +FERR32TA PO; +FLAG500T PO; +PERCOCET PO
--- NOTE | 2019-01-11 13:19 | REP ---
Bilateral lower extremity duplex veins History: Swelling Right lower extremity: Thrombus is present in the greater sinus vein and in multiple collateral veins. There is complete occlusion of the greater saphenous vein as well as multiple collateral veins . The remaining vessels of the deep venous system are patent. Impression: Thrombus is present in the greater saphenous vein and in multiple collateral veins. There is complete occlusion of the greater saphenous vein as well as multiple collateral veins. Left lower extremity: There are no filling defects in the deep venous system. The deep venous system is patent. Impression: There is no deep venous thrombosis. Electronically Signed by Landon Daniels MD 01/11/2019 01:10 P
== END ==
LOC: M RAD 12:04
PROVIDERS: ATTEND Surgery
DX: R22.43 Localized swelling, mass and lump, lower limb, bilateral (principal)

== ENCOUNTER → 2019-02-22 | Outpatient (CLI) | payer OTHER, BC ==
--- NOTE | 2019-02-22 13:27 | REP ---
Left finger series: Four views. History: Pain. Findings: Four views of the long and ring finger are presented. Overall mineralization pattern is normal. There is some osteoarthritic spurring noted incidentally at the first carpometacarpal articulation. There is mild osteoarthritic spurring at the DIP joints of the index, long, and ring fingers. There is PIP joint osteoarthritic spurring at the long and ring fingers. There is soft tissue swelling and a soft tissue gas bubble is seen at the volar aspect of the PIP joint of the long finger implying soft tissue trauma. No fracture is seen. No opaque foreign body is noted. There are subcortical cysts visible associated with the DIP joints of the index and long finger and the PIP joints of the index, long and ring finger. Impression: No fracture or opaque foreign body seen. Soft tissue gas noted along with soft tissue swelling at the PIP joint of the long finger. Osteoarthritic changes. Electronically Signed by Timbo Wren MD 02/22/2019 03:46 P
== END ==
LOC: M ADAMS 10:10
PROVIDERS: ATTEND Physician Assistant
DX: M19.042 Primary osteoarthritis, left hand (principal); M79.89 Other specified soft tissue disorders

== ENCOUNTER → 2019-05-18 | Outpatient (REF) | payer OTHER ==
[2019-05-18 13:52] LABS: BASO % 0.4 % (0.0-1.0); EOS # 0.2 10^3/uL (0.0-0.5); EOS % 3.2 % (0.0-3.0); HEMATOCRIT 35.3 % (36.0-47.0); HEMOGLOBIN 11.7 g/dl (12.0-15.5); LYMPH # 1.8 10^3/uL (1.5-5.0); LYMPH % 36.1 % (24.0-44.0); MEAN CORPUSCULAR HEMOGLOBIN 29.9 pg (27.0-33.0); MEAN CORPUSCULAR HGB CONC 33.1 g/dl (32.0-36.5); MEAN CORPUSCULAR VOLUME 90.3 fl (80.0-96.0); MONO # 0.5 10^3/uL (0.0-0.8); MONO % 9.6 % (0.0-5.0); NEUTROPHILS # 2.5 10^3/uL (1.5-8.5); NEUTROPHILS % 50.3 % (36.0-66.0); PLATELET COUNT, AUTOMATED 155 10^3/uL (150-450); RED BLOOD COUNT 3.91 10^6/uL (4.00-5.40)
[2019-05-18 14:14] LABS: ALBUMIN 3.7 GM/DL (3.2-5.2); ALT/SGPT 16 U/L (12-78); BILIRUBIN,TOTAL 1.2 MG/DL (0.2-1.0); BLOOD UREA NITROGEN 17 MG/DL (7-18); CALCIUM LEVEL 10.2 MG/DL (8.8-10.2); CARBON DIOXIDE LEVEL 27 MEQ/L (21-32); CHLORIDE LEVEL 113 MEQ/L (98-107); CHOLESTEROL LEVEL 123 MG/DL (<200); CHOLESTEROL RISK RATIO 1.892 (<5); CREATININE FOR GFR 0.94 MG/DL (0.55-1.30); FREE T4 1.02 NG/DL (0.76-1.46); GLOMERULAR FILTRATION RATE > 60.0 (>45); GLUCOSE, FASTING 98 MG/DL (70-100); HDL CHOLESTEROL 65 MG/DL (>40); LDL CHOLESTEROL 48 MG/DL (<100); NON-HDL-C 58 MG/DL; POTASSIUM SERUM 4.4 MEQ/L (3.5-5.1); SODIUM LEVEL 144 MEQ/L (136-145); TOTAL 25(OH) VITAMIN D 39.6 NG/ML (30.0-100.0); TOTAL PROTEIN 6.6 GM/DL (6.4-8.2); TRIGLYCERIDES LEVEL 50 MG/DL (<150)
[2019-05-18 15:33] LABS: HEMOGLOBIN A1c 5.5 %
== END ==
LOC: M LABDRWAD 12:43
PROVIDERS: ATTEND Nurse Practitioner Adult Health
DX: E78.2 Mixed hyperlipidemia (principal); E03.9 Hypothyroidism, unspecified; E11.9 Type 2 diabetes mellitus without complications; E55.9 Vitamin D deficiency, unspecified

== ENCOUNTER → 2019-08-03 | Outpatient (CLI) | payer OTHER, BC ==
--- NOTE | 2019-08-03 11:34 | REP ---
Five views calvaria: 08/03/2019. Indication: New mass. Swelling. Comparison: None. Findings: There is no fracture. No lytic or blastic lesions of the calvarium are detected. The paranasal sinuses appear clear. Impression: No significant osseous calvarial lesion/pathology. Electronically Signed by Shabbir Antonio DO 08/03/2019 11:26 A
== END ==
LOC: M RAD 09:38
PROVIDERS: ATTEND Surgery
DX: R22.0 Localized swelling, mass and lump, head (principal)

== ENCOUNTER 2021-01-16 13:58 | Emergency (ER) | payer MEDICARE, OTHER, BC ==
[~2021-01-16] VITALS: Ht 170.2 cm; Wt 109.0 kg
--- NOTE | 2021-01-16 15:18 | REP ---
INDICATION: trauma, hyperextended COMPARISON: None. TECHNIQUE: AP, lateral, bilateral oblique and sunrise views. FINDINGS: Generalized osteopenia is appreciated. No obvious acute fracture. Lateral view demonstrates large suprapatellar effusion. The tibiofemoral joint space demonstrates minimal joint space narrowing and chondrocalcinosis. The patellofemoral joint space demonstrates advanced subchondral sclerosis along the posterior patellar margin with chronic lateral subluxation and osteophytosis. IMPRESSION: Large suprapatellar effusion and degenerative changes primarily involving the patellofemoral joint space. No obvious acute fracture or dislocation identified. <Electronically signed by Mauricio Ray > 01/16/21 [id number]
[2021-01-16] MEDS ORDERED: MOBI4TAB PO (16:24)
[2021-01-16 16:30] VITALS: BP 134/75
== END 2021-01-16 16:40 | disposition home or self-care (01) ==
LOC: M ED 13:58
DX: S83.92XA Sprain of unspecified site of left knee, initial encounter (principal); M25.461 Effusion, right knee; X50.0XXA Overexertion from strenuous movement or load, initial encounter; Y92.019 Unspecified place in single-family (private) house as the place of occurrence of the external cause; Y93.9 Activity, unspecified; Y99.9 Unspecified external cause status; M11.262 Other chondrocalcinosis, left knee; M25.761 Osteophyte, right knee; I10 Essential (primary) hypertension; G47.33 Obstructive sleep apnea (adult) (pediatric); Z79.899 Other long term (current) drug therapy

== ENCOUNTER → 2021-01-19 | Outpatient (CLI) | payer MEDICARE, OTHER, BC ==
[~2021-01-19] MED LIST changes: +MOBI4TAB PO
--- NOTE | 2021-01-19 12:12 | REP ---
INDICATION: PAIN LEFT KNEE. COMPARISON: 01/16/2021. TECHNIQUE: Standing AP view bilateral knees. FINDINGS: No acute fracture or dislocation. Mild diffuse chondrocalcinosis bilaterally. No significant joint space narrowing is seen of the right knee joint. On the left there is mild medial joint space narrowing and subchondral sclerosis. Cystic changes are seen in the left tibial spines. IMPRESSION: Arthritic changes as above. <Electronically signed by Neo Lao > 01/19/21 [id number]
== END ==
LOC: M SOG 11:10
PROVIDERS: ATTEND Orthopaedic Surgery Adult Reconstructive Orthopaedic Surgery
DX: M25.562 Pain in left knee (principal)

== ENCOUNTER → 2021-11-27 | Outpatient (CLI) | payer MEDICARE, OTHER, BC | LOC: M WUC 10:35 | PROVIDERS: ATTEND Nurse Practitioner Family | DX: R07.81 Pleurodynia (principal) ==

== ENCOUNTER → 2022-04-10 | Outpatient (CLI) | payer MEDICARE, OTHER, BC | LOC: M SOG 07:55 | PROVIDERS: ATTEND Orthopaedic Surgery Adult Reconstructive Orthopaedic Surgery | DX: M25.561 Pain in right knee (principal) ==

== ENCOUNTER → 2023-06-05 | Outpatient (CLI) | payer MEDICARE, OTHER, BC | LOC: M WUC 10:05 | PROVIDERS: ATTEND Registered Nurse | DX: M54.6 Pain in thoracic spine (principal) ==

== ENCOUNTER → 2023-12-25 | Outpatient (CLI) | payer MEDICARE, OTHER ==
[~2023-12-25] MED LIST changes: +GASTROGRAFIN SOLUTION 30ML As Ordered ONE; +ISOVUE-370 76% 100ML VIAL As Ordered ONE; -OLME20TA2 PO; +OLME20TA50 PO
== END ==
LOC: M RAD 10:46
PROVIDERS: ATTEND Physician Assistant
DX: R10.32 Left lower quadrant pain (principal); R16.2 Hepatomegaly with splenomegaly, not elsewhere classified; K57.90 Diverticulosis of intestine, part unspecified, without perforation or abscess without bleeding
CPT/HCPCS: 74177; Q9963; Q9967

== ENCOUNTER → 2024-02-03 | Outpatient (CLI) | payer MEDICARE, OTHER ==
[~2024-02-03] MED LIST changes: -GASTROGRAFIN SOLUTION 30ML As Ordered ONE; -ISOVUE-370 76% 100ML VIAL As Ordered ONE
== END ==
LOC: M RAD 09:09
PROVIDERS: ATTEND Registered Nurse
DX: R16.1 Splenomegaly, not elsewhere classified (principal)

== ENCOUNTER → 2025-01-20 | Outpatient (CLI) | payer MEDICARE, OTHER | LOC: M WHC 12:19 | PROVIDERS: ATTEND Student in an Organized Health Care Education/Training Program | DX: R22.41 Localized swelling, mass and lump, right lower limb (principal) ==

== ENCOUNTER → 2025-01-26 | Outpatient (REF) | payer MEDICARE, OTHER | LOC: M LAB REF 17:27 | PROVIDERS: ATTEND Nurse Practitioner Family | DX: R30.0 Dysuria (principal) ==

== ENCOUNTER → 2025-05-10 | Outpatient (CLI) | payer MEDICARE, OTHER ==
[2025-05-10 13:24] LABS: ALT/SGPT 30.0 U/L (7.0-40); AST/SGOT 23.0 U/L (<34)
== END ==
LOC: M WUC 08:17
PROVIDERS: ATTEND Physician Assistant
DX: K83.8 Other specified diseases of biliary tract (principal); K76.0 Fatty (change of) liver, not elsewhere classified; R19.7 Diarrhea, unspecified

== ENCOUNTER → 2025-08-09 | Outpatient (CLI) | payer MEDICARE, OTHER | LOC: M RAD 08:38 | PROVIDERS: ATTEND Registered Nurse | DX: R22.41 Localized swelling, mass and lump, right lower limb (principal) ==